=== PATIENT | male | born 1960 | race African-American/Black ===

== ENCOUNTER → 2016-08-06 | Outpatient (CLI) | payer BC ==
--- NOTE | 2016-08-06 16:49 | US ---
EXAMINATION TYPE: US kidneys/renal and bladder DATE OF EXAM: 08/06/2016 4:39 PM COMPARISON: Renal ultrasound March 19, 2013. CT abdomen and pelvis January 25, 2010. CLINICAL HISTORY: US. Renal CA on right. Right nephrectomy 2002 EXAM MEASUREMENTS: Right Kidney: surgically absent Left Kidney: 12.5 x 7.0 x 5.4cm ANATOMY: TECHNOLOGIST IMPRESSION: Right Kidney: Surgically absent Left Kidney: Appeared wnl, no evidence of mass or hydro Bladder: wnl Bilateral Jets seen: Left jet visualized There is no evidence for hydronephrosis at this point in time. No masses are identified. The urina ry bladder is anechoic. Left ureteral jet is seen. IMPRESSION: No evidence of recurrent mass at level of right renal fossa. No hydronephrosis is seen in remnant lef t kidney. Normal Values: Renal Length = 9 - 12cm Bladder Wall: < 0.3cm
== END | disposition home or self-care (01) ==
LOC: RADUSWWP 16:26
PROVIDERS: ATTEND Urology
DX: C64.1 Malignant neoplasm of right kidney, except renal pelvis (principal)
CPT/HCPCS: 76770

== ENCOUNTER → 2016-12-31 | Outpatient (CLI) | payer BC | LOC: LABWHC1 14:52 | PROVIDERS: ATTEND Urology | DX: C61 Malignant neoplasm of prostate (principal) | CPT/HCPCS: 36415; 84153 ==

== ENCOUNTER → 2017-06-13 | Outpatient (CLI) | payer BC | END | disposition home or self-care (01) | LOC: LABWHC1 16:40 | PROVIDERS: ATTEND Urology | DX: R97.21 Rising PSA following treatment for malignant neoplasm of prostate (principal) | CPT/HCPCS: 36415; 84153 ==

== ENCOUNTER → 2017-10-04 | Outpatient (CLI) | payer BC | END | disposition home or self-care (01) | LOC: LABWHC1 17:08 | PROVIDERS: ATTEND Urology | DX: R97.20 Elevated prostate specific antigen [PSA] (principal) | CPT/HCPCS: 36415; 84153 ==

== ENCOUNTER → 2017-12-04 | Outpatient (CLI) | payer BC | END | disposition home or self-care (01) | LOC: LABWHC1 10:47 | PROVIDERS: ATTEND Urology | DX: C61 Malignant neoplasm of prostate (principal) | CPT/HCPCS: 36415; 84153 ==

== ENCOUNTER → 2018-03-07 | Outpatient (CLI) | payer BC | END | disposition home or self-care (01) | LOC: LABWHC1 15:55 | PROVIDERS: ATTEND Urology | DX: C61 Malignant neoplasm of prostate (principal) | CPT/HCPCS: 36415; 84153 ==

== ENCOUNTER → 2018-06-05 | Outpatient (CLI) | payer BC ==
[2018-06-05 13:59] LABS: Basophils % (A) 1 %; Eosinophils # (A) 0.1 k/uL (0-0.7); Eosinophils % (A) 2 %; HCT 43.5 % (39.0-53.0); HGB 14.6 gm/dL (13.0-17.5); Lymphocytes # (A) 1.2 k/uL (1.0-4.8); Lymphocytes % (A) 30 %; MCH 29.1 pg (25.0-35.0); MCHC 33.5 g/dL (31.0-37.0); MCV 86.8 fL (80.0-100.0); Mean Platelet Volume 7.8; Monocytes # (A) 0.3 k/uL (0-1.0); Monocytes % (A) 8 %; Neutrophils # (A) 2.3 k/uL (1.3-7.7); Neutrophils % (A) 58 %; Platelet Count 187 k/uL (150-450); RBC 5.01 m/uL (4.30-5.90); RDW 12.7 % (11.5-15.5)
[2018-06-05 19:28] LABS: ALT 30 U/L (10-49); AST 31 U/L (14-35); Albumin/Globulin Ratio 2.39 (1.20-2.10); Alkaline Phosphatase 72 U/L (41-126); Calcium 9.5 mg/dL (8.7-10.3); Carbon Dioxide 27.7 mmol/L (21.6-31.8); Chloride 105 mmol/L (96-109); Cholesterol 163 mg/dL (0-200); Globulin 1.8 g/dL (2.1-3.7); Glucose 135 mg/dL (70-110); Potassium 4.1 mmol/L (3.5-5.5); Sodium 141 mmol/L (135-145); Total Bilirubin 0.5 mg/dL (0.2-1.2); Total Protein 6.1 g/dL (6.2-8.2); Triglycerides <50.0 mg/dL (0.0-149.0); VLDL Calculation 9.98 mg/dL (5.00-40.00)
== END | disposition home or self-care (01) ==
LOC: LABWHC1 12:19
PROVIDERS: ATTEND Family Medicine
DX: E10.65 Type 1 diabetes mellitus with hyperglycemia (principal)
CPT/HCPCS: 36415; 80053; 80061; 84443; 85025

== ENCOUNTER → 2018-11-13 | Outpatient (CLI) | payer BC | END | disposition home or self-care (01) | LOC: LABWHC1 13:40 | PROVIDERS: ATTEND Urology | DX: R97.20 Elevated prostate specific antigen [PSA] (principal) | CPT/HCPCS: 36415; 84153 ==

== ENCOUNTER → 2019-07-01 | Outpatient (CLI) | payer BC ==
[2019-07-01 20:01] LABS: ALT 32 U/L (10-49); AST 32 U/L (14-35); Cholesterol 146 mg/dL (0-200); Triglycerides <50.0 mg/dL (0.0-149.0)
== END | disposition home or self-care (01) ==
LOC: LABT 13:43
PROVIDERS: ATTEND Internal Medicine Interventional Cardiology
DX: E78.2 Mixed hyperlipidemia (principal)
CPT/HCPCS: 36415; 80061; 84450; 84460

== ENCOUNTER 2019-12-21 05:54 | Observation (INO) | payer BC, OTHER ==
[2019-12-21 06:15] LABS: Glucose,Whole Blood 164 mg/dL (75-99)
[2019-12-21] MEDS ORDERED: SODIUM CHLORIDE 0.9% 500 ML 500 ML IV STA (06:19)
[2019-12-21] MEDS ORDERED: hydrALAZINE HCL 20 MG/ML 1 ML VIAL IVP STA (06:21)
[2019-12-21 06:31] LABS: Basophils % (A) 1 %; Eosinophils # (A) 0.2 k/uL (0-0.7); Eosinophils % (A) 4 %; HCT 49.7 % (39.0-53.0); HGB 16.3 gm/dL (13.0-17.5); Lymphocytes # (A) 1.5 k/uL (1.0-4.8); Lymphocytes % (A) 35 %; MCH 29.4 pg (25.0-35.0); MCHC 32.8 g/dL (31.0-37.0); MCV 89.8 fL (80.0-100.0); Mean Platelet Volume 8.3; Monocytes # (A) 0.5 k/uL (0-1.0); Monocytes % (A) 12 %; Neutrophils # (A) 1.9 k/uL (1.3-7.7); Neutrophils % (A) 46 %; Platelet Count 165 k/uL (150-450); RBC 5.53 m/uL (4.30-5.90); RDW 12.8 % (11.5-15.5); WBC 4.2 k/uL (3.8-10.6)
[2019-12-21 06:38] LABS: Partial Thromboplastin Time 22.9 sec (22.0-30.0); Prothrombin Time 10.3 sec (9.0-12.0)
[2019-12-21 06:39] LABS: Albumin 4.6 g/dL (3.5-5.0); Calcium 9.8 mg/dL (8.4-10.2); Potassium 4.4 mmol/L (3.5-5.1); Total Bilirubin 0.7 mg/dL (0.2-1.3); Total Protein 7.3 g/dL (6.3-8.2)
--- NOTE | 2019-12-21 06:44 | CT ---
EXAMINATION TYPE: CT brain wo con DATE OF EXAM: 12/21/2019 COMPARISON: None HISTORY: RT FACIAL DROOP CT DLP: 1099.4 mGycm Automated exposure control for dose reduction was used. Ventricles have normal size. There is no mass effect nor midline shift. There is no sign of intracran ial hemorrhage. Calvarium is intact. Temporal bones appear normal. IMPRESSION: Negative unenhanced head CT scan.
--- NOTE | 2019-12-21 06:45 | XR ---
EXAMINATION TYPE: XR chest 2V DATE OF EXAM: 12/21/2019 COMPARISON: 03/14/2015 HISTORY: Altered mental status TECHNIQUE: FINDINGS: Heart and mediastinum are normal. Lungs are clear. Diaphragm is normal. Bony thorax is inta ct. There are chest leads. IMPRESSION: Normal chest. No change.
--- NOTE | 2019-12-21 06:48 | ED ---
Neuro HPI - General Chief Complaint: Neuro Symptoms/Deficit Stated Complaint: Neuro symptoms Time Seen by Provider: 12/21/19 06:07 Source: patient, RN notes reviewed Mode of arrival: ambulatory Limitations: no limitations - History of Present Illness Is the patient presenting with stroke symptoms?: Yes Initial Comments: 59-year-old male presents emergency Department chief complaint of right-sided facial droop, difficulty swallowing, etc. facial numbness. Patient states his symptoms started approximately 4 days ago when he noticed that he cannot close his eye completely on the right. He states it is getting soap in his eye. 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 Patient states that he has no symptoms of his extremities including upper or lower he denies any weakness no paresthesias. Denies chest pain or shortness of breath. Patient has a known hypertensive, diabetic. Patient does take also Lipitor. Patient states he took his blood pressure medication around 2 AM this morning. He states that he normally takes it. Late at night. Patient denies any fevers chills no URI symptoms. Denies blurred vision no dizziness. No current headache. - Related Data Allergies/Adverse Reactions: Allergies Allergy/AdvReac Type Severity Reaction Status Date / Time clindamycin Allergy Rash/Hives Verified 12/21/19 06:03 Penicillins Allergy Rash/Hives Verified 12/21/19 06:03 Review of Systems ROS Statement: Those systems with pertinent positive or pertinent negative responses have been documented in the HPI. ROS Other: All systems not noted in ROS Statement are negative. General Exam Limitations: no limitations General appearance: alert, in no apparent distress Head exam: Present: atraumatic, normocephalic, normal inspection Eye exam: Present: normal appearance, PERRL, EOMI. Absent: scleral icterus, conjunctival injection, periorbital swelling ENT exam: Present: normal exam, normal oropharynx, mucous membranes moist, TM's normal bilaterally Neck exam: Present: normal inspection, full ROM. Absent: tenderness, meningismus, lymphadenopathy Respiratory exam: Present: normal lung sounds bilaterally. Absent: respiratory distress, wheezes, rales, rhonchi, stridor Cardiovascular Exam: Present: regular rate, normal rhythm, normal heart sounds. Absent: systolic murmur, diastolic murmur, rubs, gallop, clicks Extremities exam: Present: normal inspection, full ROM, normal capillary refill, other (Upper and lower extremity strength equal bilaterally, neurovascular intact.). Absent: tenderness, pedal edema, joint swelling, calf tenderness Neurological exam: Present: alert, oriented X3, CN II-XII intact, reflexes normal, other (There is mild right-sided facial drooping noted, there is sparing of the right side of the forehead). Absent: motor sensory deficit Expanded Patient oriented to: Present: person, place, time Speech: Present: fluid speech Cranial nerves: EOM's Intact: Normal, Gag Reflex: Normal, Tongue Deviation: Normal, Nystagmus: Normal, Facial Palsy with Forehead Movement: Abnormal Right Eye Response: (4) open spontaneously Motor Response: (6) obeys commands Verbal Response: (5) oriented Skin exam: Present: warm, dry, intact, normal color. Absent: rash Stroke MDM - Lab Data Result diagrams: 12/21/19 06:12 12/21/19 06:12 Lab Results 12/21/19 12/21/19 12/21/19 Range/Units 06:12 06:12 06:12 WBC 4.2 (3.8-10.6) k/uL RBC 5.53 (4.30-5.90) m/uL Hgb 16.3 (13.0-17.5) gm/dL Hct 49.7 (39.0-53.0) % MCV 89.8 (80.0-100.0) fL MCH 29.4 (25.0-35.0) pg MCHC 32.8 (31.0-37.0) g/dL RDW 12.8 (11.5-15.5) % Plt Count 165 (150-450) k/uL Neutrophils % 46 % Lymphocytes % 35 % Monocytes % 12 % Eosinophils % 4 % Basophils % 1 % Neutrophils # 1.9 (1.3-7.7) k/uL Lymphocytes # 1.5 (1.0-4.8) k/uL Monocytes # 0.5 (0-1.0) k/uL Eosinophils # 0.2 (0-0.7) k/uL Basophils # 0.0 (0-0.2) k/uL PT 10.3 (9.0-12.0) sec INR 1.0 (<1.2) APTT 22.9 (22.0-30.0) sec Sodium 139 (137-145) mmol/L Potassium 4.4 (3.5-5.1) mmol/L Chloride 103 (98-107) mmol/L Carbon Dioxide 26 (22-30) mmol/L Anion Gap 10 mmol/L BUN 24 H (9-20) mg/dL Creatinine 1.79 H (0.66-1.25) mg/dL Est GFR (CKD-EPI)AfAm 47 (>60 ml/min/1.73 sqM) Est GFR (CKD-EPI)NonAf 41 (>60 ml/min/1.73 sqM) Glucose 157 H (74-99) mg/dL POC Glucose (mg/dL) (75-99) mg/dL POC Glu Manager Bar ID Calcium 9.8 (8.4-10.2) mg/dL Total Bilirubin 0.7 (0.2-1.3) mg/dL AST 47 (17-59) U/L ALT 28 (4-49) U/L Alkaline Phosphatase 72 (38-126) U/L Troponin I (0.000-0.034) ng/mL Total Protein 7.3 (6.3-8.2) g/dL Albumin 4.6 (3.5-5.0) g/dL 12/21/19 12/21/19 Range/Units 06:12 06:13 WBC (3.8-10.6) k/uL RBC (4.30-5.90) m/uL Hgb (13.0-17.5) gm/dL Hct (39.0-53.0) % MCV (80.0-100.0) fL MCH (25.0-35.0) pg MCHC (31.0-37.0) g/dL RDW (11.5-15.5) % Plt Count (150-450) k/uL Neutrophils % % Lymphocytes % % Monocytes % % Eosinophils % % Basophils % % Neutrophils # (1.3-7.7) k/uL Lymphocytes # (1.0-4.8) k/uL Monocytes # (0-1.0) k/uL Eosinophils # (0-0.7) k/uL Basophils # (0-0.2) k/uL PT (9.0-12.0) sec INR (<1.2) APTT (22.0-30.0) sec Sodium (137-145) mmol/L Potassium (3.5-5.1) mmol/L Chloride (98-107) mmol/L Carbon Dioxide (22-30) mmol/L Anion Gap mmol/L BUN (9-20) mg/dL Creatinine (0.66-1.25) mg/dL Est GFR (CKD-EPI)AfAm (>60 ml/min/1.73 sqM) Est GFR (CKD-EPI)NonAf (>60 ml/min/1.73 sqM) Glucose (74-99) mg/dL POC Glucose (mg/dL) 164 H (75-99) mg/dL POC Glu Manager Bar Luh Zhong Calcium (8.4-10.2) mg/dL Total Bilirubin (0.2-1.3) mg/dL AST (17-59) U/L ALT (4-49) U/L Alkaline Phosphatase (38-126) U/L Troponin I 0.014 (0.000-0.034) ng/mL Total Protein (6.3-8.2) g/dL Albumin (3.5-5.0) g/dL - NIH Stroke Scale 1a. Level of Consciousness: (0) alert 1b. LOC Questions: (0) answers correctly 1c. LOC Commands: (0) performs tasks correctly 2. Best Gaze: (0) normal 3. Visual: (0) no visual loss 4. Facial Palsy: (1) minor paralysis 5a. Motor Arm Left: (0) no drift 5b. Motor Arm Right: (0) no drift 6a. Motor Leg Left: (0) no drift 6b. Motor Leg Right: (0) no drift 7. Limb Ataxia: (0) absent 8. Sensory: (0) normal 9. Best Language: (0) no aphasia 10. Dysarthria: (0) normal 11. Extinction/Inattention: (0) no abnormality - Thrombolytic Inclusion/Exclusion Thrombolytic Exclusion Criteria: Symptom Onset > 4.5 Hours - Medical Decision Making 59-year-old male presents emergency from for right-sided facial droop, difficulty swallowing. Patient has subacute stroke on it CT does not show an acute findings, labs to reveal mild CAD. Patient will be admitted for neurology evaluation, MRI. 12/21/19 06:47 EKG performed at 6:44 normal sinus rhythm rate of 65 IN interval 152 QRS 78 QT/QTC 392/407 Past Medical History Past Medical History: Diabetes Mellitus, GERD/Reflux, Hypertension Additional Past Medical History / Comment(s): type 1 diabetic, GERD History of Any Multi-Drug Resistant Organisms: None Reported Past Surgical History: Back Surgery, Prostate Surgery Additional Past Surgical History / Comment(s): l4 l5 fusion 2010, R nephrectomy 2002, prostatectomy 2014 Past Psychological History: No Psychological Hx Reported Smoking Status: Never smoker Past Alcohol Use History: Occasional Past Drug Use History: None Reported Course Vital Signs 12/21/19 12/21/19 05:56 07:09 Temperature 98.3 F Pulse Rate 85 59 L Respiratory 18 18 Rate Blood Pressure 209/96 143/80 O2 Sat by Pulse 100 98 Oximetry Disposition Clinical Impression: Cerebrovascular accident (CVA) Disposition: ADMITTED IP TO THIS HOSP Condition: Fair Referrals: Jesus Manuel Bañuelos MD [Primary Care Provider] - 1-2 days
[2019-12-21] MEDS ORDERED: ASPIRIN 325 MG TAB PO STA (07:27)
--- NOTE | 2019-12-21 08:48 | US ---
EXAMINATION TYPE: US carotid duplex BILAT DATE OF EXAM: 12/21/2019 COMPARISON: NONE CLINICAL HISTORY: Stenosis. Right side facial drooping EXAM MEASUREMENTS: RIGHT: Peak Systolic Velocity (PSV) cm/sec ----- Right CCA: 93.9 ----- Right ICA: 91.0 ----- Right ECA: 89.5 ICA/CCA ratio: 1.0 RIGHT: End Diastole cm/sec ----- Right CCA: 15.4 ----- Right ICA: 12.5 ----- Right ECA: 8.1 LEFT: Peak Systolic Velocity (PSV) cm/sec ----- Left CCA: 88.1 ----- Left ICA: 54.9 ----- Left ECA: 61.4 ICA/CCA ratio: 0.6 LEFT: End Diastole cm/sec ----- Left CCA: 11.4 ----- Left ICA: 18.2 ----- Left ECA: 13.1 VERTEBRALS (direction of flow): Right Vertebral: Antegrade Left Vertebral: Antegrade Rhythm: Normal Grayscale, color Doppler, spectral Doppler imaging performed of the carotid arteries. Waveform analys is does not show significant stenosis of the internal carotid arteries. Minimal plaque visualized, no elevated velocities, no significant stenosis IMPRESSION: No hemodynamic significant stenosis of the proximal internal carotid arteries by Doppler criteria, an indirect measurement of carotid stenosis
[2019-12-21] MEDS ORDERED: ACETAMINOPHEN TAB 325 MG TAB PO PRN (11:21)
[2019-12-21] MEDS ORDERED: ONDANSETRON 4 MG/2 ML VIAL IVP PRN (11:21)
[2019-12-21] MEDS ORDERED: MELATONIN 3 MG TABLET PO PRN (11:21)
[2019-12-21] MEDS ORDERED: SODIUM CHLORIDE 0.9% 1,000 ML IV SCH (11:30)
--- NOTE | 2019-12-21 11:56 | P.HPIM ---
History of Present Illness H&P Date: 12/21/19 Chief Complaint: facial droop Patient is a 59-year-old -[place] male with a past medical history of type 1 diabetes mellitus discovered at age 34, hypertension, and GERD who presented to the emergency department with complaints of right-sided facial weakness, difficulty with chewing, some difficulty swallowing. In the ER he underwent an extensive evaluation. CT head showed no acute process. Initial blood pressure was significantly elevated with systolic greater than 200. Initial laboratory analysis was unremarkable. Patient seen and examined at bedside. He reports 4 days of symptoms including right eye swelling in the morning, facial asymmetry, and difficulty with brushing teeth. He reports some progression of his symptoms over the last 4 days. He has not sought medical attention as he thought it was Dennison's Palsy. However he now notes some difficulty swallowing and choking. He notes increasing muscle fatigue, numbness, and drooling with eating. This resolves with rest and then returns. He also reports some difficulty closing his right eye. No recent illness. No recent changes in medications. Hx of bells palsy, no hx of stroke in family Last A1C 7.3 Works as a assistant professor of nursing. Review of Systems Pertinent positives and negatives as discussed in HPI, a complete review of systems was performed and all other systems are negative. Past Medical History Past Medical History: Diabetes Mellitus, GERD/Reflux, Hypertension Additional Past Medical History / Comment(s): type 1 diabetic, GERD History of Any Multi-Drug Resistant Organisms: None Reported Past Surgical History: Appendectomy, Back Surgery, Prostate Surgery Additional Past Surgical History / Comment(s): l4 l5 fusion 2010, R nephrectomy 2002, prostatectomy 2014 Past Psychological History: No Psychological Hx Reported Smoking Status: Never smoker Past Alcohol Use History: Occasional Past Drug Use History: None Reported Additional History: works as a assistant professor of nursing - Past Family History Father Family Medical History: Diabetes Mellitus, Hypertension Mother Family Medical History: Diabetes Mellitus Medications and Allergies Home Medications Medication Instructions Recorded Confirmed Type Atorvastatin [Lipitor] 10 mg PO HS 12/21/19 12/21/19 History INSULIN ASPART (NovoLOG) [NovoLOG 15 unit SQ AC-TID 12/21/19 12/21/19 History (formulary)] Insulin Glargine,Hum.rec.anlog 38 units SQ DAILY 12/21/19 12/21/19 History [Lakisha Camara] Allergies Allergy/AdvReac Type Severity Reaction Status Date / Time clindamycin Allergy Rash/Hives Verified 12/21/19 06:03 Penicillins Allergy Rash/Hives Verified 12/21/19 06:03 Physical Exam Osteopathic Statement: *. No significant issues noted on an osteopathic structural exam other than those noted in the History and Physical/Consult. Vitals: Vital Signs Temp Pulse Pulse Resp BP BP Pulse Ox 12/21/19 09:13 97.3 F L 99 16 162/83 99 12/21/19 08:30 77 16 157/85 96 12/21/19 07:09 59 L 18 143/80 98 12/21/19 05:56 98.3 F 85 18 209/96 100 Intake and Output 12/20/19 12/21/19 12/21/19 22:59 06:59 14:59 Other: Weight 88.813 kg 88.813 kg General: non toxic, no distress, appears at stated age, normal weight Derm: no unusual rashes/lesions no unusual ecchymoses, warm, dry Head: atraumatic, normocephalic, symmetric Eyes: EOMI, slight lid lag on the right , anicteric sclera, pupils equal round reactive to light ENT: Nose and ears atraumatic, no thrush, no pharyngeal erythema Neck: No thyromegaly, no cervical lymphadenopathy, trachea midline, supple Mouth: no lip lesion, mucus membranes moist Cardiovascular: S1S2 reg, no murmur, positive posterior tibial pulse bilateral, no edema, capillary refill less than 2 seconds Lungs: CTA bilateral, no rhonchi, no rales , no accessory muscle use Abdominal: soft, nontender to palpation, no guarding, no appreciable organomegaly, normal bowel sounds Ext: no gross muscle atrophy, muscle strength 5 out of 5 in all 4 extremities, no contractures, Neuro: tongue deviation to the left, uvula midline, Flattening of nasolabial fold on the right, weakness of right eye lid, weakness of eyebrow raise on the right, light touch intact all 4 extremities, finger to nose within normal limits, Psych: Alert, oriented, appropriate affect Results CBC & Chem 7: 12/21/19 06:12 12/21/19 06:12 Labs: Abnormal Lab Results - Last 24 Hours (Table) 12/21/19 12/21/19 Range/Units 06:12 06:13 BUN 24 H (9-20) mg/dL Creatinine 1.79 H (0.66-1.25) mg/dL Glucose 157 H (74-99) mg/dL POC Glucose (mg/dL) 164 H (75-99) mg/dL Chest x-ray: report reviewed CT Scan - head: report reviewed Thrombosis Risk Factor Assmnt - DVT/VTE Prophylaxis DVT/VTE Prophylaxis: Mechanical Prophylaxis ordered Assessment and Plan Assessment: Facial asymmetry -Dennison's Palsy vs Stroke - Carotid doppler negative - Head CT negative - ASA, statin - Neurology Consult - Prednisone - speech consult HTN urgency on arrival - Resume home medications - Patient is 4 days from neuro onset and likely would not benefit from permissive HTN at this time. - Follow BP DM 1 - resume long acting, Novolog and SSI - Follow BS - Check A1C GERD - Resume H2 maximiliano CKD III -Last available creatinine is 2018 is 1.4. current Creatinine is 1.79. -Patient does not have any signs or symptoms of dehydration suspect that this is currently baseline renal function in light of his diabetes. - Repeat Cr in AM The patient is placed in observation with an anticipated less than 2 midnight stay for evaluation of Facial asymmetry . DVT prophylaxis: Lovenox Discussed with: Patient and nursing Anticipated discharge date: in AM Anticipated discharge place: home A total of 35 minutes was spent on the care of this complex patient more than 50% of the time was spent in counseling and care coordination.
[2019-12-21 12:10] LABS: Glucose,Whole Blood 97 mg/dL (75-99)
[2019-12-21] MEDS: predniSONE 20 MG TAB PO SCH (12:15)
[2019-12-21] MEDS: INSULIN ASPART (NovoLOG) 100 UNIT/ML VIAL SQ SCH ×3 (13:12→22:09)
[2019-12-21 17:20] LABS: Glucose,Whole Blood 72 mg/dL (75-99)
[2019-12-21 20:20] LABS: Glucose,Whole Blood 131 mg/dL (75-99)
[2019-12-21] MEDS ORDERED: BACLOFEN 10 MG TAB PO PRN (22:13)
[2019-12-21] MEDS: SODIUM CHLORIDE 0.9% 1,000 ML IV SCH (22:16)
[2019-12-21] MEDS: ATORVASTATIN 10 MG TAB PO SCH (22:16)
[2019-12-22] MEDS: hydrALAZINE HCL 25 MG TAB PO SCH ×4 (00:49→21:56)
[2019-12-22] MEDS: LATANOPROST 0.005% OPHTH DROPS 2.5 ML BTL BOTH EYES SCH ×2 (00:49→21:56)
--- NOTE | 2019-12-22 03:39 | CONS ---
CONSULTATION DATE OF SERVICE: 12/21/2019 REASON FOR CONSULT: Acute onset of right facial weakness, difficulty swallowing and chewing. This is a 59-year-old male with a history of insulin-dependent diabetes (age of onset 34) who has hypertension, reflux. The patient was in his usual state of health up until approximately 5 days prior to admission, he started noticing difficulty with swallowing. He reports that in addition to this, he began to see some swelling of the right eye and difficulty closing it. This progressed over the next several days involving difficulty brushing his teeth, increased muscle fatigue in the facial muscles, numbness and drooling while eating. Initially, he felt this was allergies, but on the night of admission in the middle of the night between 10 and 2:00 am he realized that he was having more difficulty swallowing and was concerned that he may have aspirated. Prior to him coming to the emergency room, he reports that several days prior he noted that his face was deviating to the left. When he would pucker his lips particularly he would see that the right side of his face could not pucker. The patient has never had any episode like this prior. He reports he was given a dose of steroids today and was able to eat both lunch and dinner without any difficulty. He reports that he did feel that there was a strengthening of his muscles after receiving the steroids. Review of the chart indicates he has had a brain CT scan, noncontrast, which is negative. Carotid ultrasound shows no evidence of stenosis. Pertinent labs include hemoglobin A1c 7.3. On admission, his blood pressure was elevated with systolic blood pressure over 200. PAST MEDICAL HISTORY: Significant for insulin-dependent diabetes, the loss of one kidney, hypertension, gastroesophageal reflux. FAMILY HISTORY: Noncontributory. SOCIAL HISTORY: The patient works full-time and he is a clinical nursing instructor. GENERAL PHYSICAL EXAMINATION: APPEARANCE: No acute distress. HEENT: Clear sclerae. Clear oropharynx. NECK: Supple. CHEST: Clear to auscultation throughout. CARDIAC: Regular rate and rhythm. No murmurs noted. No carotid bruits present. PULSES: Radial and pedal pulses are equal and symmetric. EXTREMITIES: No edema noted in the hands or feet or clubbing of the digits. NEUROLOGIC EXAM: MENTAL STATUS: Awake, alert, oriented x3. Speech fluent. Affect appropriate. PUPILS: 2 mm equally reactive to light and accommodation. CRANIAL NERVE EXAMINATION: Extraocular movements are full. No nystagmus noted on vertical or horizontal gaze. There is mild lid retraction on the right. V1 through V3 sensory is intact. There is mild facial weakness noted without sparing of the forehead on the right. Gag is intact and strong. Palate elevates symmetrically. Cranial nerve 8 is intact by clinical observation. Shoulder shrug is symmetric. Tongue is midline without fasciculations or deviation. Testing of the tongue shows some mild weakness of the tongue when protruding to the right. MOTOR EXAMINATION: Normal muscle bulk and tone throughout. Strength is 5/5 throughout. Pronator drift is negative. No fasciculations or tremor noted. Coordination testing is intact to [id number] testing with eyes open eyes closed. [id number] maneuvers intact. Rapid sequential finger tapping intact. DEEP TENDON REFLEXES: +2 over the biceps, triceps, brachioradialis. Patellar reflexes are +2 with crossed adduction on the left. Ankle jerks are trace bilaterally. Plantar responses are flexor bilaterally. No ankle clonus is elicited. SENSORY EXAMINATION: Grossly intact to light touch throughout. Gait examination deferred. ASSESSMENT/RECOMMENDATION: 59-year-old gentleman with five days prior to admission evolving symptoms of developing right sided facial weakness, difficulty with swallowing and chewing particularly on that side and right lid retraction. On the neurologic exam today, there is no sparing of the forehead to suggest this is an upper motor neuron lesion. Most likely etiology for this is a Dennison's palsy due to total facial weakness noted on the right. The patient also did have a robust response clinically to steroids today where he felt his symptoms began to resolve. He was able to eat lunch and dinner without any difficulty. RECOMMENDATIONS: 1. Continue with 60 mg of prednisone p.o. and continue with this dose on a tapering schedule. 2. Provide GI prophylaxis. 3. Apply patch to eye at night to prevent corneal abrasions which is common with Dennison's palsy. 4. MRI of the brain and MRA of the head and neck without contrast to rule out still possible any intracranial pathology. 5. Formal swallow evaluation by speech therapy in a.m. 6. Physical therapy to work with patient on improving strength of masseter muscles. This can be helpful in Dennison's palsy. 7. Medicine team to closely monitor glucose with sliding scale while on high- dose steroids. 8. Would not recommend at this time due to no proven benefit using acyclovir, especially since he has had this five days prior to admission. Thank you for this consultation. This patient's prognosis remains very favorable. Further recommendations will be made as this case evolves. Neurology will be following the patient closely during this admission. ROSALINDA / JULIETTE: [id number] / MTDD
[2019-12-22 06:20] LABS: Glucose,Whole Blood 122 mg/dL (75-99)
[2019-12-22] MEDS: INSULIN ASPART (NovoLOG) 100 UNIT/ML VIAL SQ SCH ×6 (06:23→20:21)
[2019-12-22] MEDS: SODIUM CHLORIDE 0.9% 1,000 ML IV SCH ×2 (06:43→20:21)
[2019-12-22 07:16] LABS: Glucose,Whole Blood 133 mg/dL (75-99)
[2019-12-22 07:49] LABS: Calcium 8.8 mg/dL (8.4-10.2); Potassium 4.5 mmol/L (3.5-5.1)
[2019-12-22] MEDS ORDERED: INSULIN DETEMIR (LEVEMIR) 100 UNIT/ML SYR SQ SCH (09:00)
[2019-12-22] MEDS: LISINOPRIL 20 MG TAB PO SCH (09:14)
[2019-12-22] MEDS: FAMOTIDINE 20 MG TAB PO SCH (09:14)
[2019-12-22] MEDS: predniSONE 20 MG TAB PO SCH (09:14)
[2019-12-22] MEDS: ASPIRIN 325 MG TAB PO SCH (09:14)
[2019-12-22] MEDS: DOCUSATE 100 MG CAP PO SCH (09:15)
[2019-12-22] MEDS: ENOXAPARIN 40 MG/0.4 ML SYRINGE SQ SCH (09:15)
[2019-12-22] MEDS ORDERED: DIAZEPAM 5 MG/ML 2 ML INJ IVP ONE ×2 (11:00→11:30)
[2019-12-22 11:16] LABS: Glucose,Whole Blood 147 mg/dL (75-99)
[2019-12-22 14:01] LABS: Hemoglobin A1C 8.1 % (4.0-6.0)
[2019-12-22 16:25] LABS: Glucose,Whole Blood 121 mg/dL (75-99)
--- NOTE | 2019-12-22 19:44 | P.PN ---
Subjective Progress Note Date: 12/22/19 (delayed charting seen at 11 am ) Principal diagnosis: facial asymmetry Patient is a 59-year-old -[place] male with a past medical history of type 1 diabetes mellitus discovered at age 34, hypertension, and GERD who presented to the emergency department with complaints of right-sided facial weakness, difficulty with chewing, some difficulty swallowing. In the ER he un derwent an extensive evaluation. CT head showed no acute process. Initial blood pressure was significantly elevated with systolic greater than 200 and he was given a dose of hydralazine. Initial laboratory analysis was unremarkable. He was felt to likely have Dennison's palsy however he was admitted to rule out possible brainstem infarct. He received a dose of aspirin. He is felt likely have Dennison's palsy and was started on oral steroids. Neurology was consulted who agreed with probable Dennison's however felt that brainstem CVA needed to be ruled out. MRI and MRA ordered. Speech was consulted and he was noted to have normal transit time and normal oropharyngeal swallow. Patient seen and examined at bedside. He continues to have fatigue with eating and feeling as though his muscles are spasming. He denies any weakness or numbness in his legs or arms. No nausea or vomiting. No chest pain. He wants to have an MRI and MRA to ensure there is nothing besides Dennison's palsy going on. Objective - Vital Signs Vital signs: Vital Signs Temp 97.6 F 12/22/19 15:34 Pulse 58 L 12/22/19 16:00 Resp 18 12/22/19 16:00 BP 132/81 12/22/19 15:34 Pulse Ox 99 12/22/19 15:34 Intake & Output 12/22/19 12/22/19 12/23/19 06:59 18:59 06:59 Intake Total 180 660 Balance 180 660 Weight 88.2 kg Intake: Oral 180 660 Other: Voiding Method Toilet Toilet # Voids 1 - Exam General: non toxic, no distress, appears at stated age Derm: warm, dry Head: atraumatic, normocephalic, asymmetric Eyes: EOMI, no lid lag, anicteric sclera Mouth: no lip lesion, mucus membranes moist Cardiovascular: S1S2 reg, no murmur, positive posterior tibial pulse bilateral, Lungs: CTA bilateral, no rhonchi, no rales , no accessory muscle use Abdominal: soft, nontender to palpation, no guarding, no appreciable organomegaly Ext: no gross muscle atrophy, no edema, no contractures Neuro: Moving all 4 extremities independently, right-sided facial droop Psych: Alert, oriented, appropriate affect - Labs CBC & Chem 7: 12/21/19 06:12 12/22/19 06:25 Labs: Abnormal Lab Results - Last 24 Hours (Table) 12/21/19 12/22/19 12/22/19 Range/Units 20:18 06:18 06:25 Chloride (98-107) mmol/L Carbon Dioxide (22-30) mmol/L BUN (9-20) mg/dL Glucose (74-99) mg/dL POC Glucose (mg/dL) 131 H 122 H (75-99) mg/dL Hemoglobin A1c 8.1 H (4.0-6.0) % HDL Cholesterol (40-60) mg/dL 12/22/19 12/22/19 12/22/19 Range/Units 06:25 07:14 11:14 Chloride 108 H (98-107) mmol/L Carbon Dioxide 19 L (22-30) mmol/L BUN 21 H (9-20) mg/dL Glucose 122 H (74-99) mg/dL POC Glucose (mg/dL) 133 H 147 H (75-99) mg/dL Hemoglobin A1c (4.0-6.0) % HDL Cholesterol 69 H (40-60) mg/dL 12/22/19 Range/Units 16:23 Chloride (98-107) mmol/L Carbon Dioxide (22-30) mmol/L BUN (9-20) mg/dL Glucose (74-99) mg/dL POC Glucose (mg/dL) 121 H (75-99) mg/dL Hemoglobin A1c (4.0-6.0) % HDL Cholesterol (40-60) mg/dL Assessment and Plan Assessment: Facial asymmetry - Dennison's Palsy vs Stroke - Carotid doppler negative - Head CT negative - ASA, statin - Neurology recommendations appreciated: Await MRI and MRA, echocardiogram - Prednisone 60 mg started 12/21 plan is for 10 day course - speech consult HTN urgency on arrival, now resolved -Continue with lisinopril and hydralazine - Patient is 4 days from neuro onset and likely would not benefit from permissive HTN at this time. - Follow BP DM 1 - Long acting, Novolog and SSI - Follow BS - A1C 8.1 GERD - pepcid COLE on CKD III -Last available creatinine is 2018 is 1.4. - improved Plan was for discharge home after MRI/MRA patient was unable to have MRI today DVT prophylaxis: Lovenox Discussed with: Patient and nursing Anticipated discharge date: in AM Anticipated discharge place: home A total of 35 minutes was spent on the care of this complex patient more than 50% of the time was spent in counseling and care coordination.
[2019-12-22 20:47] LABS: Glucose,Whole Blood 81 mg/dL (75-99)
[2019-12-22] MEDS: ATORVASTATIN 10 MG TAB PO SCH (21:56)
[2019-12-23] MEDS ORDERED: INSULIN DETEMIR (LEVEMIR) 100 UNIT/ML SYR SQ SCH (07:00)
[2019-12-23 07:10] LABS: Glucose,Whole Blood 112 mg/dL (75-99)
[2019-12-23] MEDS: SODIUM CHLORIDE 0.9% 1,000 ML IV SCH (09:10)
[2019-12-23] MEDS: INSULIN ASPART (NovoLOG) 100 UNIT/ML VIAL SQ SCH ×4 (09:10→13:13)
--- NOTE | 2019-12-23 09:56 | MR ---
EXAMINATION TYPE: MR brain wo con DATE OF EXAM: 12/23/2019 COMPARISON: CT brain 2 days ago. HISTORY: Rt facial droop/acute stroke suspected on admission 2 days earlier. TECHNIQUE: Multiplanar, multisequence imaging of the brain and brainstem is performed without IV cont rast. FINDINGS: Diffusion weighted images demonstrate no evidence of a recent infarct or other diffusion abnormality. There is no extraaxial fluid collection or significant white matter signal abnormality. The ventricu lar system and cisternal spaces are normal in size and appearance. The brain volume is age appropria te. Midline structures demonstrate normal morphology. The craniocervical junction appears within normal limits. Normal vascular flow voids are present. The visualized sinuses are clear and the globes are i ntact. IMPRESSION: No MRI evidence for recent infarct. Fairly unremarkable study.
[2019-12-23 10:02] VITALS: PULSE 63; RESP 16; TEMP 97.7
[2019-12-23] MEDS: FAMOTIDINE 20 MG TAB PO SCH (10:03)
[2019-12-23] MEDS: ASPIRIN 325 MG TAB PO SCH (10:03)
[2019-12-23] MEDS: LISINOPRIL 20 MG TAB PO SCH (10:03)
[2019-12-23] MEDS: predniSONE 20 MG TAB PO SCH (10:03)
[2019-12-23] MEDS: hydrALAZINE HCL 25 MG TAB PO SCH ×2 (10:04→13:13)
[2019-12-23] MEDS: ENOXAPARIN 40 MG/0.4 ML SYRINGE SQ SCH (10:04)
[2019-12-23] MEDS: DOCUSATE 100 MG CAP PO SCH (10:04)
[2019-12-23 12:06] LABS: Glucose,Whole Blood 132 mg/dL (75-99)
--- NOTE | 2019-12-23 13:12 | MR ---
EXAMINATION TYPE: MR angio head/neck wo con DATE OF EXAM: 12/23/2019 COMPARISON: Carotid ultrasound 2 days ago HISTORY: Rt facial droop/CVA TECHNIQUE: MRA images of the neck performed without IV contrast. Time of flight images focusing on th e [place] were performed without contrast.. 2-D and 3-D postprocessing imaging is performed on the MRI scanner and reviewed. FINDINGS: Bovine type arch is present which is normal variant. Visualized portion of the common and i nternal carotid artery show no significant stenosis including a level of bilateral carotid bulbs. Pat ent bilateral external carotid arteries without significant stenosis. Codominant vertebrobasilar system. Vertebral arteries patent to basilar junction. Small caliber verte brobasilar system noted. Patent bilateral posterior communicating arteries filling posterior cerebral arteries which are larger caliber. No significant stenosis or aneurysmal change. Images of the anterior circulation show small caliber patent anterior communicating artery. No signif icant focal stenosis or aneurysmal change. IMPRESSION: 1. No significant stenosis in common or internal carotid arteries bilaterally. 2. No significant focal stenosis or aneurysmal change at level of [place]. Small caliber zuly tebrobasilar system, correlate for possible insufficiency with increased caliber posterior cerebral a rteries bilaterally due to patent posterior communicating arteries.
--- NOTE | 2019-12-23 14:45 | P.DS ---
Providers Date of admission: 12/21/19 07:48 Expected date of discharge: 12/23/19 Attending physician: Marianna Knight DO Consults: 12/21/19 07:27 Consult Physician Urgent Consulting Provider: Angelique Koenig Consult Reason/Comments: CVA Do you want consulting provider notified?: Yes Primary care physician: Jesus Manuel Bañuelos Hospital Course: Discharge Diagnosis: Facial asymmetry HTN urgency or arrival DM 2 insulin requiring GERD COLE on CKD 3 Hospital Course: Patient is a 59-year-old -[place] male with a past medical history of type 1 diabetes mellitus discovered at age 34, hypertension, and GERD who presented to the emergency department with complaints of right-sided facial weakness, difficulty with chewing, some difficulty swallowing. In the ER he underwent an extensive evaluation. CT head showed no acute process. Initial blood pressure was significantly elevated with systolic greater than 200 and he was given a dose of hydralazine. Initial laboratory analysis was unremarkable. He was felt to likely have Dennison's palsy however he was admitted to rule out possible brainstem infarct. He received a dose of aspirin. He was felt likely have Dennison's palsy and was started on oral steroids. Neurology was consulted who agreed with probable Dennison's however felt that brainstem CVA needed to be ruled out. MRI brain was unremarkable. His MRA showed small caliber vertebrobasilar system with patent posterior communicating arteries. Speech was consulted and he was noted to have normal transit time and normal oropharyngeal swallow. He will complete a prolong taper of prednisone for his Dennison's Palsy. He tolerated steroids well and his blood sugars remained normal. Patient seen and examined at bedside. Still with right sided facial droop. No new muscle weakness feeling good. Vital signs reviewed and stable. General: non toxic, no distress, appears at stated age Derm: warm, dry Head: atraumatic, normocephalic, symmetric Eyes: EOMI, no lid lag, anicteric sclera Mouth: no lip lesion, mucus membranes moist Cardiovascular: S1S2 reg, no murmur, positive posterior tibial pulse bilateral, Lungs: Decreased bs bilateral, no rhonchi, no rales , no accessory muscle use Abdominal: soft, nontender to palpation, no guarding, no appreciable organomegaly Ext: no gross muscle atrophy, no edema, no contractures Neuro: Right sided facial droop, all 4 extremities moving independently Psych: Alert, oriented, appropriate affect A total of 25 minutes of time were spent preparing this complex discharge summary . Patient Condition at Discharge: Fair Plan - Discharge Summary Discharge Rx Participant: No New Discharge Prescriptions: New predniSONE [Deltasone] 0 mg PO DIRECTED #21 tab Continue Atorvastatin [Lipitor] 10 mg PO HS Insulin Glargine,Hum.rec.anlog [Lakisha Camara] 38 - 40 units SQ DAILY INSULIN ASPART (NovoLOG) [NovoLOG (formulary)] 15 unit SQ AC-TID INSULIN ASPART (NovoLOG) [NovoLOG (formulary)] See Protocol SQ AC-TID PRN PRN Reason: JOSE BLOOD SUGAR Glucos Sul 2Kcl/MSM/Chond/C/Mn [Glucosamine Chondroitin Cap] 1 cap PO DAILY Ubidecarenone [Co Q-10] 100 mg PO DAILY Docusate [Colace] 100 mg PO DAILY Cholecalciferol [Vitamin D3 (25 Mcg = 1000 Iu)] 1,000 unit PO DAILY Aspirin EC [Ecotrin Low Dose] 81 mg PO HS Lisinopril 40 mg PO DAILY Latanoprost/Pf [Latanoprost 0.005% Eye Drop] 1 drop BOTH EYES HS Ibuprofen [Motrin] 600 mg PO TID PRN PRN Reason: Pain Empagliflozin [Jardiance] 10 mg PO DAILY hydrALAZINE HCL 25 mg PO TID@1000,1200,0200 Famotidine 40 mg PO DAILY Baclofen 10 mg PO TID PRN PRN Reason: BACK PAIN metFORMIN HCL ER [Glucophage Xr] 500 mg PO DAILY Hydrochlorothiazide Unknown St 1 tab PO DAILY Discharge Medication List Aspirin EC [Ecotrin Low Dose] 81 mg PO HS 12/21/19 [History] Atorvastatin [Lipitor] 10 mg PO HS 12/21/19 [History] Baclofen 10 mg PO TID PRN 12/21/19 [History] Cholecalciferol [Vitamin D3 (25 Mcg = 1000 Iu)] 1,000 unit PO DAILY 12/21/19 [History] Docusate [Colace] 100 mg PO DAILY 12/21/19 [History] Empagliflozin [Jardiance] 10 mg PO DAILY 12/21/19 [History] Famotidine 40 mg PO DAILY 12/21/19 [History] Glucos Sul 2Kcl/MSM/Chond/C/Mn [Glucosamine Chondroitin Cap] 1 cap PO DAILY 12/21/19 [History] Hydrochlorothiazide Unknown St 1 tab PO DAILY 12/21/19 [History] INSULIN ASPART (NovoLOG) [NovoLOG (formulary)] 15 unit SQ AC-TID 12/21/19 [History] INSULIN ASPART (NovoLOG) [NovoLOG (formulary)] See Protocol SQ AC-TID PRN 12/21/19 [History] Ibuprofen [Motrin] 600 mg PO TID PRN 12/21/19 [History] Insulin Glargine,Hum.rec.anlog [[place]jeo Solostar] 38 - 40 units SQ DAILY 12/21/19 [History] Latanoprost/Pf [Latanoprost 0.005% Eye Drop] 1 drop BOTH EYES HS 12/21/19 [History] Lisinopril 40 mg PO DAILY 12/21/19 [History] Ubidecarenone [Co Q-10] 100 mg PO DAILY 12/21/19 [History] hydrALAZINE HCL 25 mg PO TID@1000,1200,0200 12/21/19 [History] metFORMIN HCL ER [Glucophage Xr] 500 mg PO DAILY 12/21/19 [History] predniSONE [Deltasone] 0 mg PO DIRECTED #21 tab 12/23/19 [Rx] Follow up Appointment(s)/Referral(s): Jesus Manuel Bañuelos MD [Primary Care Provider] - 1-2 days Patient Instructions/Handouts: Dennison Palsy (DC) Activity/Diet/Wound Care/Special Instructions: Activity: as tolerated Diet: carb consistent Special Instructions: Speech Therapy Discharge Disposition: HOME SELF-CARE
[2019-12-23 14:56] VITALS: BP 124/74
--- NOTE | 2019-12-23 20:42 | ECHOF ---
Referral Reason:acute stroke MEASUREMENTS -------- HEIGHT: 175.3 cm WEIGHT: 87.1 kg BP: 124/76 IVSd: 1.4 cm (0.6 - 1.1) LVIDd: 4.2 cm (3.9 - 5.3) LVPWd: 1.3 cm (0.6 - 1.1) IVSs: 1.7 cm LVIDs: 2.8 cm LVPWs: 1.9 cm RVIDd: 3.6 cm (< 3.3) LAESV Index (A-L): 24.15 ml/m Ao Diam: 2.8 cm (2.0 - 3.7) AV Cusp: 2.2 cm (1.5 - 2.6) EPSS: 0.3 cm MV E Nate: 0.88 m/s MV DecT: 157 ms MV A Nate: 0.57 m/s MV E/A Ratio: 1.54 RAP: 5.00 mmHg RVSP: 28.93 mmHg MV EF SLOPE: 84.63 mm/s (70 - 150) MV EXCURSION: 21.56 mm (> 18.000) FINDINGS -------- Resting bradycardia (HR<60bpm). This was a technically good study. The left ventricular size is normal. There is mild concentric left ventricular hypertrophy. Overa ll left ventricular systolic function is normal with, an EF between 55 - 60 %. The diastolic fillin g pattern is normal for the age of the patient 10.53. The right ventricle is mildly enlarged. Normal LA size by volume 22+/-6 ml/m2. The right atrial size is normal. Interatrial and interventricular septum intact. The aortic valve is trileaflet and appears structurally normal. There is no evidence of aortic regu rgitation. There is no evidence of aortic stenosis. Mild mitral regurgitation is present. Mild tricuspid regurgitation present. There is no evidence of pulmonary hypertension. The right v entricular systolic pressure, as measured by Doppler, is 28.93mmHg. Trace/mild (physiologic) pulmonic regurgitation. The aortic root size is normal. The inferior vena cava is mildly dilated. There is no pericardial effusion. CONCLUSIONS -------- 1. Resting bradycardia (HR<60bpm). 2. This was a technically good study. 3. The left ventricular size is normal. 4. There is mild concentric left ventricular hypertrophy. 5. Overall left ventricular systolic function is normal with, an EF between 55 - 60 %. 6. The diastolic filling pattern is normal for the age of the patient 10.53 7. The right ventricle is mildly enlarged. 8. Normal LA size by volume 22+/-6 ml/m2. 9. The right atrial size is normal. 10. Interatrial and interventricular septum intact. 11. The aortic valve is trileaflet and appears structurally normal. 12. There is no evidence of aortic regurgitation. 13. There is no evidence of aortic stenosis. 14. Mild mitral regurgitation is present. 15. Mild tricuspid regurgitation present. 16. There is no evidence of pulmonary hypertension. 17. The right ventricular systolic pressure, as measured by Doppler, is 28.93mmHg. 18. Trace/mild (physiologic) pulmonic regurgitation. 19. The aortic root size is normal. 20. The inferior vena cava is mildly dilated. 21. There is no pericardial effusion. SPOUT POSITIONER: Annetta York RDCS
== END 2019-12-23 16:30 | disposition home or self-care (01) ==
LOC: EC 05:54 → 3SCARD 07:48 → INTOOBSV 07:48 → 3SCARD 08:12
PROVIDERS: ADMIT Internal Medicine; ATTEND Internal Medicine
DX: R29.810 Facial weakness (principal); I16.0 Hypertensive urgency; R13.10 Dysphagia, unspecified; R63.3 Feeding difficulties; E11.22 Type 2 diabetes mellitus with diabetic chronic kidney disease; I12.9 Hypertensive chronic kidney disease with stage 1 through stage 4 chronic kidney disease, or unspecified chronic kidney disease; N18.3 Chronic kidney disease, stage 3 (moderate); K21.9 Gastro-esophageal reflux disease without esophagitis; M62.89 Other specified disorders of muscle; N17.9 Acute kidney failure, unspecified; H02.533 Eyelid retraction right eye, unspecified eyelid; Z79.4 Long term (current) use of insulin; Z79.899 Other long term (current) drug therapy; Z82.49 Family history of ischemic heart disease and other diseases of the circulatory system; Z83.3 Family history of diabetes mellitus; Z90.5 Acquired absence of kidney; Z90.79 Acquired absence of other genital organ(s); Z98.1 Arthrodesis status; Z88.1 Allergy status to other antibiotic agents; Z88.0 Allergy status to penicillin; Z03.818 Encounter for observation for suspected exposure to other biological agents ruled out
CPT/HCPCS: 96372 ×2; 96374; 96361; 99285; 36415; 93005; 93306; 97165; 92610; 80061; 80053; 80048; 84484; 85025; 85610; 85730; 83036; 87635; 71046; 93880; 70450; 70544; 70547; 70551; G0378 ×3; J3360; J1650 ×2; J7512 ×3

== ENCOUNTER → 2020-12-23 | Outpatient (CLI) | payer BC ==
[2020-12-24 04:02] LABS: Cholesterol 133 mg/dL (0-200); Triglycerides <50.0 mg/dL (0.0-149.0)
[2020-12-24 06:11] LABS: Prostate Specific Antigen <0.1 ng/mL (0.0-4.5)
== END | disposition home or self-care (01) ==
LOC: LABWHC1 15:16
PROVIDERS: ATTEND Nurse Practitioner Adult Health
DX: C61 Malignant neoplasm of prostate (principal); E78.5 Hyperlipidemia, unspecified
CPT/HCPCS: 36415; 80061; 84153

== ENCOUNTER → 2021-07-27 | Outpatient (CLI) | payer BC ==
[2021-07-28 00:10] LABS: Basophils # (A) 0.03 X 10*3/uL (0.00-0.10); Basophils % (A) 0.7 %; Eosinophils # (A) 0.09 X 10*3/uL (0.04-0.35); HCT 47.7 % (39.6-50.0); HGB 15.8 g/dL (13.0-17.0); Lymphocytes # (A) 1.27 X 10*3/uL (0.90-5.00); MCH 29.9 pg (27.0-32.0); MCHC 33.1 g/dL (32.0-37.0); MCV 90.3 fL (80.0-97.0); Mean Platelet Volume 11.2 fL (9.5-12.2); Monocytes # (A) 0.54 X 10*3/uL (0.20-1.00); Monocytes % (A) 11.9 %; Neutrophils # (A) 2.59 X 10*3/uL (1.80-7.70); Neutrophils % (A) 57.2 %; Platelet Count 205 X 10*3/uL (140-440); RBC 5.28 X 10*6/uL (4.40-5.60); RDW 11.9 % (11.5-14.5); WBC 4.53 X 10*3/uL (4.50-10.00)
[2021-07-28 02:58] LABS: Creatine Kinase 292 U/L (35-257); Phosphorus 3.3 mg/dL (2.4-5.1)
[2021-07-28 03:04] LABS: ALT 37 U/L (10-49); AST 42 U/L (14-35); African American GFR (CKD) 58.9 (60.0-200.0); Albumin 4.9 g/dL (3.8-4.9); Albumin/Globulin Ratio 2.29 (1.60-3.17); Alkaline Phosphatase 79 U/L (41-126); BUN/Creat Ratio 11.51 Ratio (12.00-20.00); Blood Urea Nitrogen 16.8 mg/dL (9.0-27.0); Calcium 9.8 mg/dL (8.7-10.3); Carbon Dioxide 20.1 mmol/L (20.0-27.5); Chloride 101 mmol/L (96-109); Chol/HDL Ratio 1.92 Ratio; Globulin 2.1 g/dL (1.6-3.3); Glucose 163 mg/dL (70-110); LDL Cholesterol,Calculated 57.2 mg/dL (0.0-131.0); Non-African American GFR(CKD) 50.8 (60.0-200.0); Potassium 4.1 mmol/L (3.5-5.5); Sodium 143 mmol/L (135-145); VLDL Calculation 11.32 mg/dL (5.00-40.00)
== END | disposition home or self-care (01) ==
LOC: LABWHC1 16:07
PROVIDERS: ATTEND Family Medicine
DX: Z13.220 Encounter for screening for lipoid disorders (principal); N18.31 Chronic kidney disease, stage 3a; Z85.46 Personal history of malignant neoplasm of prostate; I10 Essential (primary) hypertension; R53.83 Other fatigue
CPT/HCPCS: 36415; 80053; 80061; 80069; 82306; 82550; 83721; 83970; 84153; 84402; 84403; 84439; 84443; 84481; 85025

== ENCOUNTER 2021-12-29 23:00 | Emergency (ER) | payer BC ==
[2021-12-29 23:10] VITALS: BP 197/89; PULSE 81; RESP 18; TEMP 98.1
--- NOTE | 2021-12-30 00:01 | XR ---
EXAMINATION TYPE: XR shoulder complete RT DATE OF EXAM: 12/29/2021 COMPARISON: NONE HISTORY: Shoulder pain TECHNIQUE: 3 views FINDINGS: I see no fracture nor dislocation. Glenohumeral joint is intact. There are no pathologic ca lcifications. IMPRESSION: Negative right shoulder exam
[2021-12-30] MEDS ORDERED: KETOROLAC 15 MG/ML 1 ML VIAL IM STA (00:08)
[2021-12-30] MEDS ORDERED: ACET/COD 300 MG/30 MG STARTER PACK 6 TAB BTL PO STA (00:17)
--- NOTE | 2021-12-30 00:17 | ED ---
General Adult HPI - General Chief complaint: Extremity Injury, Upper Stated complaint: Right shoulder injury Time Seen by Provider: 12/29/21 23:55 Source: patient, RN notes reviewed, old records reviewed Mode of arrival: ambulatory Limitations: no limitations - History of Present Illness Initial comments: Pleasant 61-year-old male presents to the emergency room with complaints of right shoulder pain since Saturday. 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 He states that the following day he reached behind him to lift a bag of Gatorade and developed a worsening sharp pain in his right shoulder. He states that he is unable to lift the arm and having difficulty putting his shirt on. Denies any other joint pain. No fevers. -: days(s) (3) Location: right (shoulder), upper extremity Radiation: non-radiation Quality: constant Consistency: constant Improves with: immobilization, other (Abduction) Worsens with: movement Associated Symptoms: denies other symptoms Treatments Prior to Arrival: NSAID - Related Data Home Medications Medication Instructions Recorded Confirmed Aspirin EC [Ecotrin Low Dose] 81 mg PO HS 12/21/19 12/21/19 Atorvastatin [Lipitor] 10 mg PO HS 12/21/19 12/21/19 Baclofen 10 mg PO TID PRN 12/21/19 12/21/19 Cholecalciferol [Vitamin D3 (25 1,000 unit PO DAILY 12/21/19 12/21/19 Mcg = 1000 Iu)] Docusate [Colace] 100 mg PO DAILY 12/21/19 12/21/19 Empagliflozin [Jardiance] 10 mg PO DAILY 12/21/19 12/21/19 Famotidine 40 mg PO DAILY 12/21/19 12/21/19 Glucos Sul 2Kcl/MSM/Chond/C/Mn 1 cap PO DAILY 12/21/19 12/21/19 [Glucosamine Chondroitin Cap] INSULIN ASPART (NovoLOG) [NovoLOG 15 unit SQ AC-TID 12/21/19 12/21/19 (formulary)] INSULIN ASPART (NovoLOG) [NovoLOG See Protocol SQ AC-TID PRN 12/21/19 12/21/19 (formulary)] Ibuprofen [Motrin] 600 mg PO TID PRN 12/21/19 12/21/19 Insulin Glargine,Hum.rec.anlog 38 - 40 units SQ DAILY 12/21/19 12/21/19 [Toujeo Solostar] Latanoprost/Pf [Latanoprost 0.005% 1 drop BOTH EYES HS 12/21/19 12/21/19 Eye Drop] Ubidecarenone [Co Q-10] 100 mg PO DAILY 12/21/19 12/21/19 hydrALAZINE HCL 25 mg PO TID@1000,1200,0200 12/21/19 12/21/19 lisinopriL 40 mg PO DAILY 12/21/19 12/21/19 metFORMIN HCL ER [Glucophage XR] 500 mg PO DAILY 12/21/19 12/21/19 hydroCHLOROthiazide [Hydrodiuril] 12.5 mg PO DAILY 12/23/19 12/23/19 Previous Rx's Medication Instructions Recorded predniSONE [Deltasone] 0 mg PO DIRECTED #21 tab 12/23/19 Allergies Allergy/AdvReac Type Severity Reaction Status Date / Time clindamycin Allergy Rash/Hives Verified 12/21/19 14:50 Penicillins Allergy Rash/Hives Verified 12/21/19 14:50 Review of Systems ROS Statement: Those systems with pertinent positive or pertinent negative responses have been documented in the HPI. ROS Other: All systems not noted in ROS Statement are negative. Past Medical History Past Medical History: Diabetes Mellitus, GERD/Reflux, Hypertension Additional Past Medical History / Comment(s): type 1 diabetic, GERD History of Any Multi-Drug Resistant Organisms: None Reported Past Surgical History: Appendectomy, Back Surgery, Prostate Surgery Additional Past Surgical History / Comment(s): l4 l5 fusion 2010, R nephrectomy 2002, prostatectomy 2014 Past Psychological History: No Psychological Hx Reported Smoking Status: Never smoker Past Alcohol Use History: Occasional Past Drug Use History: None Reported - Past Family History Father Family Medical History: Diabetes Mellitus, Hypertension Mother Family Medical History: Diabetes Mellitus General Exam Limitations: no limitations General appearance: alert, in no apparent distress Head exam: Present: atraumatic Eye exam: Present: normal appearance Respiratory exam: Present: normal lung sounds bilaterally. Absent: respiratory distress, accessory muscle use Cardiovascular Exam: Present: regular rate, normal rhythm Right Shoulder Exam: Present: tenderness, tenderness over AC joint. Absent: full ROM, swelling Upper Arm exam: Present: normal inspection. Absent: tenderness Elbow exam: Absent: tenderness Vascular: Present: normal capillary refill, radial pulse. Absent: vascular compromise Neurological exam: Present: alert, oriented X3, normal gait Psychiatric exam: Present: normal affect, normal mood Skin exam: Present: warm, dry, normal color. Absent: cyanosis, diaphoretic Course Vital Signs 12/29/21 23:07 Temperature 98.1 F Pulse Rate 81 Respiratory 18 Rate Blood Pressure 197/89 O2 Sat by Pulse 98 Oximetry Medical Decision Making - Medical Decision Making Patient complains of right shoulder pain for 3 days. There is AC joint tenderness. He has pain with abduction, relief with abduction. He states the pain is worse at night and he has been trying to sleep in a chair. Attempts at elevating the arm or external rotation worsens his pain. This consistent with a rotator cuff injury. He was requesting a dose of Toradol and was provided after discussion that it is not recommended for renal patients. He was instructed to wear the sling and follow-up with orthopedics next week. He states that he has seen Dr. Smiley for back surgery in the past. Tylenol was recommended as needed for pain. Patient is agreeable to this plan of care. Case was discussed with Dr. Heredia Disposition Clinical Impression: Shoulder pain, right Disposition: HOME SELF-CARE Condition: Good Instructions (If sedation given, give patient instructions): Shoulder Pain (ED) Additional Instructions: Take Tylenol for pain and follow-up with orthopedics on Saturday. Wear the sling as applied. You may be more comfortable if you sleep in a chair. Is patient prescribed a controlled substance at d/c from ED?: No Referrals: Jesus Manuel Bañuelos MD [Primary Care Provider] - 1-2 days Tiffanie Smiley DO [Doctor of Osteopathic Medicine] - 1-2 days Time of Disposition: 00:15
== END 2021-12-30 00:39 | disposition home or self-care (01) ==
LOC: EC 23:00
DX: M25.511 Pain in right shoulder (principal); E11.9 Type 2 diabetes mellitus without complications; I10 Essential (primary) hypertension; K21.9 Gastro-esophageal reflux disease without esophagitis; Z79.83 Long term (current) use of bisphosphonates; Z88.1 Allergy status to other antibiotic agents; Z88.0 Allergy status to penicillin
CPT/HCPCS: 73030; 99283; 96372; J1885

== ENCOUNTER → 2022-01-01 | Outpatient (CLI) | payer BC ==
--- NOTE | 2022-01-01 16:45 | US ---
EXAMINATION TYPE: US venous doppler duplex UE RT DATE OF EXAM: 01/01/2022 COMPARISON: NONE CLINICAL HISTORY: R22.31 SWELLING, MASS AND LUMP. SIDE PERFORMED: Right Arm: Negative for DVT IMPRESSION: No evidence of deep vein thrombosis in the right arm. No pathologic fluid collection
== END | disposition home or self-care (01) ==
LOC: RADUSWWP 15:50
PROVIDERS: ATTEND Family Medicine
DX: R22.31 Localized swelling, mass and lump, right upper limb (principal)
CPT/HCPCS: 85379

== ENCOUNTER → 2022-01-25 | Outpatient (CLI) | payer BC ==
--- NOTE | 2022-01-26 22:09 | XR ---
EXAMINATION TYPE: XR chest 2V DATE OF EXAM: 01/25/2022 COMPARISON: X-ray dated 03/14/2020 HISTORY: Benign lipomatous neoplasm of the skin TECHNIQUE: Frontal and lateral views of the chest are obtained. FINDINGS: Subtle density superimposed on the mid thoracic vertebrae in the lateral view which could represent o steophytosis however other lesion cannot be excluded. Further CT assessment can be considered. Grossly unremarkable lungs otherwise. No pleural effusion or pneumothorax. No cardiomegaly. Subtle ao rtic atherosclerotic calcification. Mild degenerative changes of the thoracic spine. IMPRESSION: Questionable osteophytosis versus other lesion in the lateral view as described above. Further CT ass essment can be considered.
== END | disposition home or self-care (01) ==
LOC: RADXRMAIN 15:16
PROVIDERS: ATTEND Family Medicine
DX: D17.1 Benign lipomatous neoplasm of skin and subcutaneous tissue of trunk (principal)
CPT/HCPCS: 71046

== ENCOUNTER → 2022-02-05 | Outpatient (CLI) | payer BC ==
--- NOTE | 2022-02-05 08:52 | US ---
EXAMINATION TYPE: US chest DATE OF EXAM: 02/05/2022 COMPARISON: EXAMINATION TYPE: US chest DATE OF EXAM: 02/05/2022 COMPARISON: NONE CLINICAL HISTORY: D17.1 BENIGN LIPOMATOUS NEOPLASM OF SKIN, SUBCU OF. Left lower back lump unable to palpitate and patient can't either. Scanned area of concern no abnormalities visualized. IMPRESSION: As above. No suspicious solid or cystic mass or fluid collection seen at the site of pal pable abnormality left lower back subcutaneous tissue.
== END | disposition home or self-care (01) ==
LOC: RADUSWWP 07:36
PROVIDERS: ATTEND Family Medicine
DX: D17.1 Benign lipomatous neoplasm of skin and subcutaneous tissue of trunk (principal)
CPT/HCPCS: 76604

== ENCOUNTER → 2022-02-28 | Outpatient (CLI) | payer BC | END | disposition home or self-care (01) | LOC: LABWHC1 11:51 | PROVIDERS: ATTEND Urology | DX: C61 Malignant neoplasm of prostate (principal) | CPT/HCPCS: 36415; 84153 ==

== ENCOUNTER → 2022-02-28 | Outpatient (CLI) | payer BC ==
--- NOTE | 2022-02-28 13:06 | XR ---
EXAMINATION TYPE: XR chest 2V DATE OF EXAM: 02/28/2022 COMPARISON: 01/25/2022 INDICATION: Right renal cancer TECHNIQUE: Frontal and lateral views of the chest are obtained. FINDINGS: The heart size is normal. The pulmonary vasculature is normal. The lungs are clear. No suspicious nodules are evident. No suspicious expansile lesions within the o sseous structures is evident. IMPRESSION: 1. No acute pulmonary process.
== END | disposition home or self-care (01) ==
LOC: RADXRMAIN 12:23
PROVIDERS: ATTEND Urology
DX: C64.1 Malignant neoplasm of right kidney, except renal pelvis (principal)
CPT/HCPCS: 71046

== ENCOUNTER 2022-05-07 15:34 | Observation (INO) | payer BC ==
--- NOTE | 2022-05-07 17:48 | CT ---
EXAMINATION TYPE: CT brain wo con DATE OF EXAM: 05/07/2022 COMPARISON: 12/21/2019 HISTORY: c/o double vision in left eye CT DLP: 1102.4 mGycm Automated exposure control for dose reduction was used. Ventricles are of normal size. There is no mass effect or midline shift. No sign of intracranial hemo rrhage. Calvarium is intact. The skull base is intact. There is normal aeration of the mastoid sinuse s. IMPRESSION: Negative unenhanced head CT scan. No change.
[2022-05-07 20:27] LABS: Glucose,Whole Blood 119 mg/dL (70-110)
[2022-05-07] MEDS ORDERED: PROCHLORPERAZINE INJ 10 MG/2 ML VIAL IVP STA (21:01)
[2022-05-07] MEDS ORDERED: diphenhydrAMINE 50 MG/ML 1 ML VIAL IVP STA (21:01)
[2022-05-07] MEDS ORDERED: SODIUM CHLORIDE 0.9% 1,000 ML IV STA (21:01)
[2022-05-07] MEDS ORDERED: KETOROLAC 15 MG/ML 1 ML VIAL IVP STA (21:01)
[2022-05-07] MEDS ORDERED: LORazepam 2 MG/ML INJ IV PRN (21:03)
[2022-05-07 21:26] LABS: Basophils % (A) 1 %; Eosinophils # (A) 0.1 k/uL (0-0.7); Eosinophils % (A) 2 %; HCT 45.3 % (39.0-53.0); Lymphocytes # (A) 1.1 k/uL (1.0-4.8); Lymphocytes % (A) 28 %; MCHC 35.3 g/dL (31.0-37.0); MCV 87.7 fL (80.0-100.0); Mean Platelet Volume 8.5; Monocytes # (A) 0.3 k/uL (0-1.0); Monocytes % (A) 7 %; Neutrophils # (A) 2.3 k/uL (1.3-7.7); Neutrophils % (A) 59 %; Platelet Count 177 k/uL (150-450); RBC 5.17 m/uL (4.30-5.90); RDW 12.2 % (11.5-15.5); WBC 3.9 k/uL (3.8-10.6)
[2022-05-07] MEDS ORDERED: ASPIRIN 325 MG TAB PO STA (21:29)
--- NOTE | 2022-05-07 21:32 | ED ---
General Adult HPI - General Chief complaint: Headache Stated complaint: Left eye swelling and pain Time Seen by Provider: 05/07/22 20:30 Source: patient, RN notes reviewed, old records reviewed Mode of arrival: ambulatory Limitations: no limitations - History of Present Illness Initial comments: Patient is a 62-year-old male with past medical history remarkable for diabetes, hypertension prior Dennison's palsy who presents emergency Department complaining of left eye pain, as well as diplopia. Symptoms have been slightly worsening over the last 2 weeks. His follow-up with the telesales consultant multiple times and they diagnosed him with a fatigued eye muscle. Is been on prednisone drops, with no improvement in symptoms. Presents emergency department today for further evaluation. Endorses double vision, particularly when looking to the right. Denies shortness of breath. Denies chest pain, abdominal pain, nausea, vomiting. Does endorse a mild headache on the left side of his head. States it is been more or less consistent with minimal improvement from Motrin or Tylenol at home. States he only has one kidney. Denies any weakness or numbness. No other acute complaint at this time. Presents for further evaluation. Is concerned he may be having a stroke. 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 - Related Data Home Medications Medication Instructions Recorded Confirmed Aspirin EC [Ecotrin Low Dose] 81 mg PO HS 12/21/19 05/07/22 Empagliflozin [Jardiance] 10 mg PO DAILY 12/21/19 05/07/22 Famotidine 40 mg PO HS 12/21/19 05/07/22 Glucos Sul 2Kcl/MSM/Chond/C/Mn 1 cap PO HS 12/21/19 05/07/22 [Glucosamine Chondroitin Cap] INSULIN ASPART (NovoLOG) [NovoLOG 15 unit SQ AC-TID 12/21/19 05/07/22 (formulary)] INSULIN ASPART (NovoLOG) [NovoLOG See Protocol SQ AC-TID PRN 12/21/19 05/07/22 (formulary)] Insulin Glargine,Hum.rec.anlog 38 units SQ HS 12/21/19 05/07/22 [Toujeo Solostar] Latanoprost/Pf [Latanoprost 0.005% 1 drop BOTH EYES HS 12/21/19 05/07/22 Eye Drop] Ubidecarenone [Co Q-10] 200 mg PO HS 12/21/19 05/07/22 metFORMIN HCL ER [Glucophage XR] 500 mg PO HS 12/21/19 05/07/22 Cinnamon Bark [Cinnamon] 1,000 mg PO HS 05/07/22 05/07/22 Cranberry Fruit Extract [Cranberry] 500 mg PO HS 05/07/22 05/07/22 Ibuprofen [Motrin] 800 mg PO Q8H PRN 05/07/22 05/07/22 Multivitamins, Thera [Multivitamin 1 tab PO HS 05/07/22 05/07/22 (formulary)] Zinc Gluconate [Zinc] 100 mg PO HS 05/07/22 05/07/22 amLODIPine [Norvasc] 10 mg PO HS 05/07/22 05/07/22 hydrALAZINE HCL [Apresoline] 50 mg PO TID 05/07/22 05/07/22 lisinopriL [Zestril] 20 mg PO HS 05/07/22 05/07/22 Allergies Allergy/AdvReac Type Severity Reaction Status Date / Time clindamycin Allergy Rash/Hives Verified 05/07/22 22:26 Penicillins Allergy Unknown Verified 05/07/22 22:26 Childhood Review of Systems ROS Statement: Those systems with pertinent positive or pertinent negative responses have been documented in the HPI. Review of Systems: CONST: Denies fever EYES: Endorses blurry vision, left eye with swelling. ENT: Denies nasal congestion C/V: Denies Chest pain RESP: Denies shortness of breath GI: Denies abdominal pain : Denies dysuria SKIN: Denies rash. MSK: Denies joint pain. NEURO: Denies headache ROS Other: All systems not noted in ROS Statement are negative. Past Medical History Past Medical History: Diabetes Mellitus, GERD/Reflux, Hypertension Additional Past Medical History / Comment(s): type 1 diabetic, GERD History of Any Multi-Drug Resistant Organisms: None Reported Past Surgical History: Appendectomy, Back Surgery, Prostate Surgery Additional Past Surgical History / Comment(s): l4 l5 fusion 2010, R nephrectomy 2002, prostatectomy 2014 Past Psychological History: No Psychological Hx Reported Smoking Status: Never smoker Past Alcohol Use History: Occasional Past Drug Use History: None Reported - Past Family History Father Family Medical History: Diabetes Mellitus, Hypertension Mother Family Medical History: Diabetes Mellitus General Exam - General Exam Comments Initial Comments: General: Appears in no acute distress. HEAD: Normal with no signs of head trauma. EYES: PERRLA, pupils are 3 mm and equal bilaterally. Right eye has full range of motion of extraocular movements. Left eye has good range of motion superiorly, inferiorly, and laterally. Has a medial rectus palsy. Vision and both eyes as well as isolated is 20/30. He does use corrective lenses. There is some left superior eyelid swelling. No obvious skin changes. No pain with movement of the eye. ENT: Hearing grossly intact, normal oropharynx. RESPIRATORY: Clear breath sounds bilaterally. No wheezes, rales, or rhonchi. C/V: Regular rate and rhythm. S1 and S2 auscultated, no edema, peripheral pulses 2+ and intact throughout ABD: Abd is soft, nontender, nondistended EXT: Normal range of motion, no obvious deformity SKIN: No rashes or lesions observed on exposed skin. NEURO: Alert and oriented x 4. Cranial nerves II, and IV-XII intact. No focal sensory or strength deficits. GCS of 15. Patient has a isolated left medial rectus palsy. Remainder of cranial nerves III bilaterally is intact. Limitations: no limitations Course Vital Signs 05/07/22 16:17 Temperature 98.4 F Pulse Rate 77 Respiratory 20 Rate Blood Pressure 196/98 O2 Sat by Pulse 99 Oximetry Medical Decision Making - Medical Decision Making Based on the patient's presentation and physical exam, I'm concerned for possible intracranial process for his worsening diplopia, pain behind left eye, as well as left medial rectus palsy. CT imaging was obtained while the patient was in triage and was negative for any acute process. Symptoms have been ongoing for 2 weeks. Remainder of the workup and neuro exam is unremarkable. Patient's point of care blood sugar is within normal limits. I discussed with the patient the option of obtaining CT angiogram to evaluate for arterial occlusion, aneurysm, possible stroke as the cause of his symptoms. He only has one kidney with reduced kidney function. He is concerned regarding this kidney. I did explain to him that we can obtain MRIs which are more detail but cannot be done urgently. As the patient is been having 2 weeks of these symptoms with mildly worsening symptoms slowly over the last 2 weeks, I do believe it is reasonable to wait for MRI in the morning if patient is willing. He doesn't understand the risks involved and was in agreement with the plan. I discussed the case with on-call neurology, Dr. Currie. He was in agreement that as the patient is concerned regarding the renal function, it is reasonable to wait to obtain MRI, MRA tomorrow. He agrees that this is recommended in the current setting, as we cannot rule out possible stroke. Could be related to his diabetes. He accepted the consult. No Further recommendations at this time except for MRI, MRA. I will provide the patient with a dose of aspirin as a CT brain shows no signs of bleeding. We will obtain basic labs. MRI/MRA were ordered. He was given a migrant cocktail for his headache. Patient was in agreement this plan. He is claustrophobic and 1 dose of Ativan was ordered for his MRI. Vital signs are within acceptable limits. We will restart his home medications. I spoke with the admitting physician, Dr. Holder of [facility] emergency department who accepted the patient. He was admitted to observation telemetry in stable condition. - Lab Data Result diagrams: 05/07/22 21:21 05/07/22 21:21 Lab Results 05/07/22 05/07/22 05/07/22 Range/Units 20:26 21:21 21:21 WBC 3.9 (3.8-10.6) k/uL RBC 5.17 (4.30-5.90) m/uL Hgb 16.0 (13.0-17.5) gm/dL Hct 45.3 (39.0-53.0) % MCV 87.7 (80.0-100.0) fL MCH 31.0 (25.0-35.0) pg MCHC 35.3 (31.0-37.0) g/dL RDW 12.2 (11.5-15.5) % Plt Count 177 (150-450) k/uL MPV 8.5 Neutrophils % 59 % Lymphocytes % 28 % Monocytes % 7 % Eosinophils % 2 % Basophils % 1 % Neutrophils # 2.3 (1.3-7.7) k/uL Lymphocytes # 1.1 (1.0-4.8) k/uL Monocytes # 0.3 (0-1.0) k/uL Eosinophils # 0.1 (0-0.7) k/uL Basophils # 0.0 (0-0.2) k/uL Sodium 140 (137-145) mmol/L Potassium 3.3 L (3.5-5.1) mmol/L Chloride 110 H (98-107) mmol/L Carbon Dioxide 21 L (22-30) mmol/L Anion Gap 9 mmol/L BUN 16 (9-20) mg/dL Creatinine 1.00 (0.66-1.25) mg/dL Est GFR (CKD-EPI)AfAm >90 (>60 ml/min/1.73 sqM) Est GFR (CKD-EPI)NonAf 80 (>60 ml/min/1.73 sqM) Glucose 89 (74-99) mg/dL POC Glucose (mg/dL) 119 H (70-110) mg/dL POC Glu Braid Folder ID [place] Sil[place] Calcium 7.6 L (8.4-10.2) mg/dL Magnesium 1.7 (1.6-2.3) mg/dL Disposition Clinical Impression: Diplopia Narrative: left medial rectus palsy Disposition: ADMITTED IP TO THIS HOSP Condition: Stable Referrals: Jesus Manuel Bañuelos MD [Primary Care Provider] - 1-2 days Time of Disposition: 21:20
[2022-05-07 21:36] LABS: African American GFR (CKD) >90 (>60 ml/min/1.73 sqM); Anion Gap 9 mmol/L; Blood Urea Nitrogen 16 mg/dL (9-20); Calcium 7.6 mg/dL (8.4-10.2); Carbon Dioxide 21 mmol/L (22-30); Chloride 110 mmol/L (98-107); Glucose 89 mg/dL (74-99); Magnesium 1.7 mg/dL (1.6-2.3); Non-African American GFR(CKD) 80 (>60 ml/min/1.73 sqM); Potassium 3.3 mmol/L (3.5-5.1); Sodium 140 mmol/L (137-145)
[2022-05-07] MEDS ORDERED: POTASSIUM CHLORIDE ER 20 MEQ TAB.ER PO STA (21:37)
[2022-05-07] MEDS ORDERED: NALOXONE 0.4 MG/ML 1 ML VIAL IV PRN (21:58)
[2022-05-07] MEDS ORDERED: FAMOTIDINE 20 MG TAB PO STA (22:42)
[2022-05-07] MEDS ORDERED: INSULIN DETEMIR (LEVEMIR) 100 UNIT/ML SYR SQ SCH (22:45)
[2022-05-08] MEDS ORDERED: MAG HYDROX/AL HYDROX/SIMETH 30 ML CUP PO PRN
[2022-05-08] MEDS ORDERED: INSULIN DETEMIR (LEVEMIR) 100 UNIT/ML SYR SQ SCH (00:38)
[2022-05-08] MEDS ORDERED: MORPHINE SULFATE 2 MG/ML SYRINGE IVP PRN (02:18)
--- NOTE | 2022-05-08 03:27 | P.HPIM ---
History of Present Illness H&P Date: 05/07/22 Chief Complaint: left eye pain and dipolopia 62 year old male with DM , hypertension , history of renal cancer patient comes in with persistent diplopia and left eye weakness of 3 weeks duration , started suddenly no precipitating factors, he went and saw ophthalmology twice, did full exam and diagnosed him with fatigued eye muscle, and gave him a prescription for prednison. he reports no improvement in his eye condition since then and today presenting seeking help . he reports pain behind the left eye , but no ophthalmoplegia. no excessive tearing no blurry vision , no swelling. he noticed droopy upper eyelid and diplopia. he denies fever, chills, eye trauma, URI symptoms , headache, or any other focal neuro deficits. blood work in the ED showed hypokalemia otherwise unremarkable CT of the brain negative no head and neck CTA done , due to patient having one kidney and was having concerns regarding contrast. patient admitted for neurology evaluation and MRI in the morning patient has history of bells palsy on the left side Review of Systems Pertinent positives as noted in HPI. All other systems were reviewed and are negative Past Medical History Past Medical History: Diabetes Mellitus, GERD/Reflux, Hypertension Additional Past Medical History / Comment(s): type 1 diabetic, GERD History of Any Multi-Drug Resistant Organisms: None Reported Past Surgical History: Appendectomy, Back Surgery, Prostate Surgery Additional Past Surgical History / Comment(s): l4 l5 fusion 2010, R nephrectomy 2002, prostatectomy 2014 Past Psychological History: No Psychological Hx Reported Smoking Status: Never smoker Past Alcohol Use History: Occasional Past Drug Use History: None Reported - Past Family History Father Family Medical History: Diabetes Mellitus, Hypertension Mother Family Medical History: Diabetes Mellitus Medications and Allergies Home Medications Medication Instructions Recorded Confirmed Type Aspirin EC [Ecotrin Low Dose] 81 mg PO HS 12/21/19 05/07/22 History Empagliflozin [Jardiance] 10 mg PO DAILY 12/21/19 05/07/22 History Famotidine 40 mg PO HS 12/21/19 05/07/22 History Glucos Sul 2Kcl/MSM/Chond/C/Mn 1 cap PO HS 12/21/19 05/07/22 History [Glucosamine Chondroitin Cap] INSULIN ASPART (NovoLOG) [NovoLOG 15 unit SQ AC-TID 12/21/19 05/07/22 History (formulary)] INSULIN ASPART (NovoLOG) [NovoLOG See Protocol SQ AC-TID PRN 12/21/19 05/07/22 History (formulary)] Insulin Glargine,Hum.rec.anlog 38 units SQ HS 12/21/19 05/07/22 History [Toortiz Solostar] Latanoprost/Pf [Latanoprost 0.005% 1 drop BOTH EYES HS 12/21/19 05/07/22 History Eye Drop] Ubidecarenone [Co Q-10] 200 mg PO HS 12/21/19 05/07/22 History metFORMIN HCL ER [Glucophage XR] 500 mg PO HS 12/21/19 05/07/22 History Cinnamon Bark [Cinnamon] 1,000 mg PO HS 05/07/22 05/07/22 History Cranberry Fruit Extract [Cranberry] 500 mg PO HS 05/07/22 05/07/22 History Ibuprofen [Motrin] 800 mg PO Q8H PRN 05/07/22 05/07/22 History Multivitamins, Thera [Multivitamin 1 tab PO HS 05/07/22 05/07/22 History (formulary)] Zinc Gluconate [Zinc] 100 mg PO HS 05/07/22 05/07/22 History amLODIPine [Norvasc] 10 mg PO HS 05/07/22 05/07/22 History hydrALAZINE HCL [Apresoline] 50 mg PO TID 05/07/22 05/07/22 History lisinopriL [Zestril] 20 mg PO HS 05/07/22 05/07/22 History Allergies Allergy/AdvReac Type Severity Reaction Status Date / Time clindamycin Allergy Rash/Hives Verified 05/07/22 22:26 Penicillins Allergy Unknown Verified 05/07/22 22:26 Childhood Physical Exam Vitals: Vital Signs Temp Pulse Resp BP Pulse Ox 05/07/22 16:17 98.4 F 77 20 196/98 99 Intake and Output 05/07/22 05/07/22 05/07/22 06:59 14:59 22:59 Other: Weight 84.822 kg Constitutional: No acute distress, conversant, pleasant Eyes: Anicteric sclerae, moist conjunctiva, Pupils equal round reactive to light ENMT: NC/AT Oropharynx clear, no erythema, or exudates Neck: Supple, no masses, or JVD No carotid bruits No thyromegaly Lungs: Clear to auscultation Clear to percussion Normal respiratory effort, no accessory muscle use Cardiovascular: Heart regular in rate and rhythm, No murmurs, gallops, or rubs No peripheral edema Abdominal: Soft Nontender, no guarding, rebound or rigidity Abdomen moving with respiration Normoactive bowel sounds No hepatomegaly, No splenomegaly No palpable mass No abdominal wall hernia noted Skin: Normal temperature, tone, texture, turgor No induration No subcutaneous nodules No rash, lesions No ulcers Extremities: No digital cyanosis No clubbing Pedal pulses intact and symmetrical Radial pulses intact and symmetrical No calf tenderness Psychiatric: Alert and oriented to person, place and time Appropriate affect fair judgement Neuro Muscles Strength 5/5 in all 4 extremities Sensation to light touch grossly present throughout Cranial nerves II-XII grossly intact except for left 3rd cranial nerve with eyelid ptosis , , and limitation in the range in eye movement No focal sensory deficits Lymphatics: no palpable cervical or supraclavicular , or inguinal lymph nodes Results CBC & Chem 7: 05/07/22 21:21 05/07/22 21:21 Labs: Abnormal Lab Results - Last 24 Hours (Table) 05/07/22 05/07/22 Range/Units 20:26 21:21 Potassium 3.3 L (3.5-5.1) mmol/L Chloride 110 H (98-107) mmol/L Carbon Dioxide 21 L (22-30) mmol/L POC Glucose (mg/dL) 119 H (70-110) mg/dL Calcium 7.6 L (8.4-10.2) mg/dL Assessment and Plan Assessment: left eye muscle weakness, with ptosis CT brain negative neurology eval MRI in the morning supportive care patch left eye to help with diplopia pain control with tylenol , morphine PRN hypokalemia , replace and follow up level s chornic conditions hypertension resume lisinopril , amlodipine DM insulin sliding scale and basal insulin GERD PPI DVT PPX SCDs full code
[2022-05-08 03:35] LABS: Glucose,Whole Blood 193 mg/dL (70-110)
[2022-05-08] MEDS: hydrALAZINE HCL 50 MG TAB PO SCH ×4 (03:36→22:59)
[2022-05-08] MEDS: amLODIPine 10 MG TAB PO SCH ×2 (04:43→21:03)
[2022-05-08 06:39] LABS: Basophils % (A) 1 %; Eosinophils # (A) 0.1 k/uL (0-0.7); Eosinophils % (A) 2 %; HCT 41.7 % (39.0-53.0); HGB 14.4 gm/dL (13.0-17.5); Lymphocytes # (A) 1.1 k/uL (1.0-4.8); Lymphocytes % (A) 34 %; MCH 30.8 pg (25.0-35.0); MCHC 34.6 g/dL (31.0-37.0); Mean Platelet Volume 8.8; Monocytes # (A) 0.3 k/uL (0-1.0); Monocytes % (A) 10 %; Neutrophils # (A) 1.7 k/uL (1.3-7.7); Neutrophils % (A) 51 %; Platelet Count 156 k/uL (150-450); RBC 4.68 m/uL (4.30-5.90); RDW 12.3 % (11.5-15.5); WBC 3.3 k/uL (3.8-10.6)
[2022-05-08 06:46] LABS: Calcium 8.9 mg/dL (8.4-10.2); Potassium 4.6 mmol/L (3.5-5.1)
[2022-05-08 07:25] LABS: Glucose,Whole Blood 131 mg/dL (70-110)
[2022-05-08] MEDS: PANTOPRAZOLE 40 MG TABLET PO SCH (07:47)
[2022-05-08] MEDS: INSULIN ASPART (NovoLOG) 100 UNIT/ML VIAL SQ SCH ×7 (07:48→21:10)
[2022-05-08] MEDS ORDERED: metFORMIN 500 MG TAB PO SCH (09:00)
[2022-05-08] MEDS ORDERED: LORazepam 1 MG/0.5 ML VIAL IV PRN (09:36)
--- NOTE | 2022-05-08 10:24 | P.CNNES ---
History of Present Illness Consult date: 05/08/22 Requesting physician: Rickie Will Reason for Consult: isolated left medial rectus palsy History of Present Illness: This is a 62-year-old gentleman with history of diabetes, hypertension, Dennison's palsy over the left side about 2 years ago, renal cancer s/p resection and has only one functional since 2002 who presents to the emergency department because of diplopia and visual disturbance over the left eye. Patient stated that the towards end of March 2022 a day after he got to covert vaccine posterior he noticed that he is having the blurry vision and double vision and he felt the objects are 1 on top another and it was on the left side. When he covered the left eye that diplopia resolved but we covered the right eye he still had the diplopia. He denies any headache associated with it. He has mild pain with eye movement and he felt was 1 -3/10. He didn't notice ptosis over the left eye associate with this but denies any ptosis of the right. Denies any worsening of the symptoms as a day goes on or with more movement or activity He denies any nausea, vomiting, denies any slurring the speech, numbness anywhere, any focal weakness and any difficulty getting his words out. He was evaluated by an maple syrup maker twice locally any and he was notified that he had the muscle palsy and a lazy eye over the left and he was given prednisone ointments for week which the he completed but did not notice any improvement. As a result he decided to come to the hospital to rule out stroke since not noticing any improvement. She denies any history of stroke or TIA. And ice tobacco use. Patient states that he takes baby aspirin 81 mg daily at home. Of note, the ED physician (Dr. Will) contacted me regarding this case yesterday via phone and he notified me about the patient and seems that the patient refused CT angiography because of only functional kidney and refusing contrast. Some other workup during this hospital visit consisted of: CT of the head is reported as negative on has had computed tomography scan. No change. I personally reviewed the CT of the head and there is no acute or subacute ischemia. There is no intrathecal hemorrhage. There is no mass effect that was able to appreciate. Initial calcium 7.6 is the repeated calcium is 8.9. Review of Systems Review of system: The 12 point system was reviewed and apparent positive and ne gative per HPI. Past Medical History Past Medical History: Diabetes Mellitus, GERD/Reflux, Hypertension Additional Past Medical History / Comment(s): type 1 diabetic, GERD History of Any Multi-Drug Resistant Organisms: None Reported Past Surgical History: Appendectomy, Back Surgery, Prostate Surgery Additional Past Surgical History / Comment(s): l4 l5 fusion 2010, R nephrectomy 2002, prostatectomy 2014 Past Psychological History: No Psychological Hx Reported Smoking Status: Never smoker Past Alcohol Use History: Occasional Past Drug Use History: None Reported - Past Family History Father Family Medical History: Diabetes Mellitus, Hypertension Mother Family Medical History: Diabetes Mellitus Medications and Allergies Home Medications Medication Instructions Recorded Confirmed Type Aspirin EC [Ecotrin Low Dose] 81 mg PO HS 12/21/19 05/07/22 History Empagliflozin [Jardiance] 10 mg PO DAILY 12/21/19 05/07/22 History Famotidine 40 mg PO HS 12/21/19 05/07/22 History Glucos Sul 2Kcl/MSM/Chond/C/Mn 1 cap PO HS 12/21/19 05/07/22 History [Glucosamine Chondroitin Cap] INSULIN ASPART (NovoLOG) [NovoLOG 15 unit SQ AC-TID 12/21/19 05/07/22 History (formulary)] INSULIN ASPART (NovoLOG) [NovoLOG See Protocol SQ AC-TID PRN 12/21/19 05/07/22 History (formulary)] Insulin Glargine,Hum.rec.anlog 38 units SQ HS 12/21/19 05/07/22 History [Toujeo Solostar] Latanoprost/Pf [Latanoprost 0.005% 1 drop BOTH EYES 12/21/19 05/07/22 History Eye Drop] Ubidecarenone [Co Q-10] 200 mg PO HS 12/21/19 05/07/22 History metFORMIN HCL ER [Glucophage XR] 500 mg PO HS 12/21/19 05/07/22 History Cinnamon Bark [Cinnamon] 1,000 mg PO HS 05/07/22 05/07/22 History Cranberry Fruit Extract [Cranberry] 500 mg PO HS 05/07/22 05/07/22 History Ibuprofen [Motrin] 800 mg PO Q8H PRN 05/07/22 05/07/22 History Multivitamins, Thera [Multivitamin 1 tab PO HS 05/07/22 05/07/22 History (formulary)] Zinc Gluconate [Zinc] 100 mg PO HS 05/07/22 05/07/22 History amLODIPine [Norvasc] 10 mg PO HS 05/07/22 05/07/22 History hydrALAZINE HCL [Apresoline] 50 mg PO TID 05/07/22 05/07/22 History lisinopriL [Zestril] 20 mg PO HS 05/07/22 05/07/22 History Allergies Allergy/AdvReac Type Severity Reaction Status Date / Time clindamycin Allergy Rash/Hives Verified 05/07/22 22:26 Penicillins Allergy Unknown Verified 05/07/22 22:26 Childhood Physical Examination - Vital Signs Vital Signs: Vital Signs Temp Pulse Pulse Resp BP BP Pulse Ox 05/08/22 07:20 98.7 F 50 L 18 157/75 97 05/08/22 06:58 74 16 154/77 99 05/08/22 05:16 82 16 131/81 99 05/08/22 02:00 84 16 164/87 99 05/07/22 16:17 98.4 F 77 20 196/98 99 Intake and Output 05/07/22 05/08/22 05/08/22 22:59 06:59 14:59 Other: # Voids 1 Weight 84.822 kg 84.822 kg GENERAL: The patient is lying in bed and is not in acute distress. CHEST: The heart rate is regular rate rhythm. No murmurs to auscultation. LUNG: Clear to auscultation bilaterally no wheezing noted throughout. Not labored breathing. ABDOMEN/GI: Bowel sounds present in all 4 quadrants. No tenderness to palpation throughout. NEUROLOGICAL: Higher mental function: The patient is awake, alert, oriented to self, place and time. Patient is following commands. No aphasia and no neglect. Cranial nerves: Primary gaze is midline bilaterally. The pupils are round, equal and reactive to light. Appears to have intact accomodation over the right eye but not left. Visual rodriguez are full to confrontation throughout. Extraocular movement is palsy looking to left medial and up and out. No nysagumus. Has ptosis over the left eye that is moderate in severity. Facial sensation is normal to touch throughout. The facial strength is mild decrease left upper and lower facial weakness (old Dennison's Palsy). Hearing is normal bilaterally to hand rub. Tongue is midline and moved [id number] without any difficulty. No dysarthria is noted. Shoulder shrug is normal bilaterally. Motor: The strength is 5 over 5 throughout. Normal tone and bulk. Cerebellum: Normal finger to nose heel to barriga bilaterally. Sensation: Sensation is normal to touch throughout. Reflexes (right/left): 2+ throughout. Plantars are mute bilaterally. Results - Laboratory Findings CBC and BMP: 05/08/22 06:16 05/08/22 06:16 Abnormal Lab Findings: Abnormal Labs 05/07/22 05/07/22 05/08/22 20:26 21:21 03:33 WBC Potassium 3.3 L Chloride 110 H Carbon Dioxide 21 L Creatinine Glucose POC Glucose (mg/dL) 119 H 193 H Calcium 7.6 L 05/08/22 05/08/22 05/08/22 06:16 06:16 07:23 WBC 3.3 L Potassium Chloride 109 H Carbon Dioxide Creatinine 1.29 H Glucose 156 H POC Glucose (mg/dL) 131 H Calcium Assessment and Plan Assessment: Partial left oculomotor (3rd) nerve palsy since end of March 2022 (having symptoms for past two week and on examination appears left medial rectus palsy and inferior oblique): 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 Long-standing history of diabetes for the past 3 years Long-standing history of hypertension for about 30 years History of Dennison's palsy about 2 years ago on the left facial and it's mild severity History of renal cancer s/p resection and has only one functional since 2002 Plan: MRI of the brain and MRA of the head is ordered without. Patient refuses any contrast because he has only one functional kidney. I ordered TSH, hemoglobin A1c, vitamin B12 In the ED the patient was given aspirin 325 once and was continued on his home dose of aspirin 81 mg daily at bedtime. We'll defer the rest of the medical management to the primary team. Upon discharge the patient to continue to follow-up with his maple syrup maker within 1-2 weeks. Thank you for the consultation. Sina Currie M.D. Neuro-Hospitalist Time with Patient: Greater than 30
--- NOTE | 2022-05-08 11:35 | MR ---
EXAMINATION TYPE: MR angio head wo con DATE OF EXAM: 05/08/2022 COMPARISON: 12/03/2019 HISTORY: Isolated left medial rectus palsy TECHNIQUE: Utilizing 3-D [id number] intracranial MRA of the [place] was performed. FINDINGS: Codominant vertebrobasilar system. Vertebral arteries patent to basilar junction. Small caliber verte brobasilar system noted. Posterior cerebral arteries originate from the anterior circulation.. No siz able aneurysm. Images of the anterior circulation show small caliber patent anterior communicating ar jesus. IMPRESSION: 1. No evidence of vascular malformation or sizable aneurysm. 2. Diminutive vertebrobasilar system can occasionally be associated with vertebrobasilar insufficienc y correlate clinically.
--- NOTE | 2022-05-08 11:39 | MR ---
EXAMINATION TYPE: MR brain wo con DATE OF EXAM: 05/08/2022 COMPARISON: 12/23/2019 HISTORY: Isolated left medial rectus palsy TECHNIQUE: T1-weighted sagittal, T2, FLAIR, and diffusion axial, and T2 coronal coronal views of the brain are submitted. FINDINGS: There is no evidence of acute ischemia. The ventricles, basal cisterns, and sulci overlying the conv exities are consistent with mild degenerative change. Periventricular areas of abnormal signal are n onspecific but most mild remote wedging of matter ischemia. There is no mass effect. Craniocervical junction maintained. Sella turcica has a normal appearance. No cerebellopontine angle mass. IMPRESSION: 1. No acute intracranial process. 2. Mild degenerative change and mild nonspecific white matter changes most remotely ischemic
[2022-05-08 12:31] LABS: Glucose,Whole Blood 145 mg/dL (70-110)
[2022-05-08] MEDS: DAPAGLIFLOZIN PROPANEDIOL 10 MG TABLET PO SCH (12:31)
--- NOTE | 2022-05-08 16:07 | P.PN ---
Subjective Progress Note Date: 05/08/22 Principal diagnosis: diplopia Hospital Course: 62-year-old male with past medical history of Dennison's palsy, hypertension, diabetes, renal cancer status post resection presenting with diplopia and left- sided weakness. Patient recently saw an ditch repairer, and was diagnosed with possible fatigued I muscle. He was started on prednisone. He continued to have significant left-sided ptosis and diplopia. He decided to come to the hospital for further evaluation. Subjective: Patient seen and examined at bedside. No acute events overnight. He continues to have an diplopia. He denies any chest pain, shortness of breath, abdominal pain, urinary or bowel issues. Pertinent positives and negatives as discussed above, a complete review of systems was performed and all other systems are negative. Vitals Signs Reviewed. General: nontoxic, no distress, appears at stated age Derm: warm, dry Head: atraumatic, normocephalic, symmetric Eyes: EOMI, no lid lag, anicteric sclera, left-sided ptosis Mouth: no lip lesion, mucus membranes moist Cardiovascular: S1S2 reg, no murmur Lungs: CTA bilateral, no rhonchi, no rales , no accessory muscle use Abdominal: soft, nontender to palpation, no guarding, no appreciable organomegaly Ext: no gross muscle atrophy, no edema, no contractures Neuro: CN II-XI grossly intact, no focal neuro deficits Psych: Alert, oriented, appropriate affect Assessment and Plan: Left-sided ptosis Diplopia - CT brain negative -MRI, MRA pending -Neurology consulted -Supportive care Hypokalemia -Resolved Chronic medical conditions: Hypertension - continue lisinopril and amlodipine Diabetes - sliding scale, basal insulin GERD - PPI DVT ppx: Heparin subcu Code status: Full code Anticipated discharge place: Home Anticipated discharge time:. Likely tomorrow Objective - Vital Signs Vital signs: Vital Signs Temp 98.3 F 05/08/22 15:00 Pulse 63 05/08/22 15:00 Resp 18 05/08/22 15:00 BP 151/74 05/08/22 15:00 Pulse Ox 99 05/08/22 15:00 FiO2 Intake & Output 05/07/22 05/08/22 05/08/22 18:59 06:59 18:59 Intake Total 358 Balance 358 Weight 84.822 kg 84.822 kg Intake: Oral 358 Other: # Voids 1 - Labs CBC & Chem 7: 05/08/22 06:16 05/08/22 06:16 Labs: Abnormal Lab Results - Last 24 Hours (Table) 05/07/22 05/07/22 05/08/22 Range/Units 20:26 21:21 03:33 WBC (3.8-10.6) k/uL Potassium 3.3 L (3.5-5.1) mmol/L Chloride 110 H (98-107) mmol/L Carbon Dioxide 21 L (22-30) mmol/L Creatinine (0.66-1.25) mg/dL Glucose (74-99) mg/dL POC Glucose (mg/dL) 119 H 193 H (70-110) mg/dL Hemoglobin A1c (0.0-6.0) % Calcium 7.6 L (8.4-10.2) mg/dL Vitamin B12 (200.0-944.0) pg/mL 05/08/22 05/08/22 05/08/22 Range/Units 06:16 06:16 06:16 WBC 3.3 L (3.8-10.6) k/uL Potassium (3.5-5.1) mmol/L Chloride 109 H (98-107) mmol/L Carbon Dioxide (22-30) mmol/L Creatinine 1.29 H (0.66-1.25) mg/dL Glucose 156 H (74-99) mg/dL POC Glucose (mg/dL) (70-110) mg/dL Hemoglobin A1c 7.5 H (0.0-6.0) % Calcium (8.4-10.2) mg/dL Vitamin B12 (200.0-944.0) pg/mL 05/08/22 05/08/22 05/08/22 Range/Units 06:16 07:23 12:30 WBC (3.8-10.6) k/uL Potassium (3.5-5.1) mmol/L Chloride (98-107) mmol/L Carbon Dioxide (22-30) mmol/L Creatinine (0.66-1.25) mg/dL Glucose (74-99) mg/dL POC Glucose (mg/dL) 131 H 145 H (70-110) mg/dL Hemoglobin A1c (0.0-6.0) % Calcium (8.4-10.2) mg/dL Vitamin B12 1182.0 H (200.0-944.0) pg/mL
[2022-05-08 17:07] LABS: Glucose,Whole Blood 170 mg/dL (70-110)
[2022-05-08] MEDS ORDERED: FLUTICASONE 50MCG/SPRAY NASAL 16GM EA NOSTRIL PRN (18:41)
[2022-05-08] MEDS ORDERED: LATANOPROST 0.005% OPHTH DROPS 2.5 ML BTL BOTH EYES SCH (21:00)
[2022-05-08] MEDS ORDERED: NON FORMULARY DRUG (Ubidecarenone [Co Q-10] 100 MG Capsule) PO SCH (21:00)
[2022-05-08] MEDS ORDERED: amLODIPine 10 MG TAB PO SCH (21:00)
[2022-05-08] MEDS ORDERED: ASPIRIN 81 MG PO SCH (21:00)
[2022-05-08] MEDS ORDERED: lisinopriL 20 MG TAB PO SCH (21:00)
[2022-05-08 21:10] LABS: Glucose,Whole Blood 95 mg/dL (70-110)
[2022-05-08] MEDS: HEPARIN SODIUM,PORCINE/PF 5,000 UNIT/0.5 ML SYRINGE SQ SCH (22:59)
[2022-05-09] MEDS: ACETAMINOPHEN TAB 325 MG TAB PO PRN ×2 (01:38→08:24)
[2022-05-09 07:15] LABS: Glucose,Whole Blood 226 mg/dL (70-110)
[2022-05-09] MEDS: INSULIN ASPART (NovoLOG) 100 UNIT/ML VIAL SQ SCH ×2 (08:04→08:25)
[2022-05-09 08:21] VITALS: BP 163/73; PULSE 86; RESP 17; TEMP 98.4
[2022-05-09] MEDS: hydrALAZINE HCL 50 MG TAB PO SCH (08:24)
[2022-05-09] MEDS: PANTOPRAZOLE 40 MG TABLET PO SCH (08:24)
[2022-05-09] MEDS: HEPARIN SODIUM,PORCINE/PF 5,000 UNIT/0.5 ML SYRINGE SQ SCH (08:25)
[2022-05-09] MEDS: DAPAGLIFLOZIN PROPANEDIOL 10 MG TABLET PO SCH (08:25)
--- NOTE | 2022-05-09 10:12 | P.PN ---
Subjective Progress Note Date: 05/09/22 The patient is seen at bedside and he feels about the same. He denies any new neurological issues. Objective - Vital Signs Vital signs: Vital Signs Temp 98.4 F 05/09/22 07:00 Pulse 86 05/09/22 07:00 Resp 17 05/09/22 07:00 BP 163/73 05/09/22 07:00 Pulse Ox 97 05/09/22 07:00 FiO2 Intake & Output 05/08/22 05/09/22 05/09/22 18:59 06:59 18:59 Intake Total 598 444 Balance 598 444 Weight 84.822 kg Intake: Oral 598 444 Other: # Voids 1 1 - Exam GENERAL: The patient is lying in bed and is not in acute distress. NEUROLOGICAL: Higher mental function: The patient is awake, alert, oriented to self, place and time. Patient is following commands. No aphasia and no neglect. Cranial nerves: Primary gaze is midline bilaterally. The pupils are round, equal and reactive to light. Appears to have intact accomodation over the right eye but not left. Visual rodriguez are full to confrontation throughout. Extraocular movement is palsy looking to left medial and up and out. No nysagumus. Has ptosis over the left eye that is moderate in severity. Facial sensation is normal to touch throughout. The facial strength is mild decrease left upper and lower facial weakness (old Dennison's Palsy). Hearing is normal bilaterally to hand rub. Tongue is midline and moved [id number] without any difficulty. No dysarthria is noted. Shoulder shrug is normal bilaterally. Motor: The strength is 5 over 5 throughout. Normal tone and bulk. Cerebellum: Normal finger to nose heel to barriga bilaterally. Sensation: Sensation is normal to touch throughout. Reflexes (right/left): 2+ throughout. Plantars are mute bilaterally. Some other workup during this hospital visit consisted of: CT of the head is reported as negative on has had computed tomography scan. No change. I personally reviewed the CT of the head and there is no acute or subacute ischemia. There is no intrathecal hemorrhage. There is no mass effect that was able to appreciate. Initial calcium 7.6 is the repeated calcium is 8.9. Vitamin B12: 1182 TSH: 0.774 HbA1c: 7.5 MRI Brain is reported as no acute intracranial process. Mild degenerative change and mild nonspecific white matter changes most remotely ischemic. I personally reviewed MRI Brain and there is no acute or subacute ischemic stroke. MRA head is reported as No evidence of vascular malformation or sizable aneurysm. Diminutive vertebrobasilar system can occasionally b associated with vertebrobasilar insufficiency correlate clinically. 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 No acute/subacute ischemic stroke or aneursym seen. Rule out aneurysm or stroke. Long-standing history of diabetes for the past 30 years Long-standing history of hypertension for about 30 years History of Dennison's palsy about 2 years ago on the left facial and it's mild sev erity History of renal cancer s/p resection and has only one functional since 2002 Plan: Patient needs to follow-up with his mill tender washing as an outpatient for further management as outpatient. He has eye patch for left eye and was told to wear it at night but during the day to alternate to attempt to strengthen the movement of left eye palsy. Continued on his home dose of aspirin 81 mg daily at bedtime. We'll defer the rest of the medical management to the primary team. Upon discharge the patient to continue to follow-up with his mill tender washing within 1-2 weeks. Consider also following-up with neurologist as outpatient. Plan is discussed with patient and primary team. No additional work-up is needed. Patient is clear for discharge from neurological perspective. Sina Currie M.D. Neuro-Hospitalist Time with Patient: Less than 30
[2022-05-09 10:24] LABS: African American GFR (CKD) 61.5 (60.0-200.0); Anion Gap 13.3 mmol/L (10.00-18.00); BUN/Creat Ratio 13.14 Ratio (12.00-20.00); Blood Urea Nitrogen 18.4 mg/dL (9.0-27.0); Calcium 8.9 mg/dL (8.7-10.3); Carbon Dioxide 20.7 mmol/L (20.0-27.5); Non-African American GFR(CKD) 53.1 (60.0-200.0); Potassium 4.2 mmol/L (3.5-5.5)
--- NOTE | 2022-05-09 10:25 | P.DS ---
Providers Date of admission: 05/07/22 21:58 Expected date of discharge: 05/09/22 Attending physician: Karley Holder MD Consults: 05/07/22 21:01 Consult Physician Routine Consulting Provider: Sina Currie Consult Reason/Comments: isolated left medial rectus palsy Do you want consulting provider notified?: Already Contacted Primary care physician: Jesus Manuel Bañuelos Hospital Course: Discharge Diagnosis: Left-sided ptosis Diplopia Partial left third cranial nerve palsy History of Dennison's palsy History of renal cancer status post resection Hypokalemia Hypertension Insulin-dependent diabetes GERD Hospital Course: 62-year-old male with History of Dennison's palsy, diabetes, renal cancer status post resection presented with diplopia and left-sided eye weakness. CT head did not show any acute process. Patient was seen by neurology. Likely has partial left third cranial nerve palsy related to diabetes. MRI/MRA did not show any acute intracranial process. Mild degenerative changes and mild nonspecific white matter changes mostly remotely ischemic were noted. No evidence of vascular malformation or sizable aneurysm was noted. Diminutive vertebrobasilar system was seen which could represent vertebrobasilar insufficiency. However patient does not have any syncopal symptoms. Patient was discharged with an eye patch and recommended to rotate between the 2 eyes to retrain the muscles on the left side. He will see his tool and fixture repairer after discharge. He will also make an appointment with neurology in the future to further assess the possibility of vertebrobasilar insufficiency. Patient seen and examined at bedside. Vital signs reviewed and stable. General: nontoxic, no distress, appears at stated age Derm: warm, dry Head: atraumatic, normocephalic, symmetric Eyes: EOMI, no lid lag, anicteric sclera, left-sided ptosis Mouth: no lip lesion, mucus membranes moist Cardiovascular: S1S2 reg, no murmur Lungs: CTA bilateral, no rhonchi, no rales , no accessory muscle use Abdominal: soft, nontender to palpation, no guarding, no appreciable organomegaly Ext: no gross muscle atrophy, no edema, no contractures Neuro: Possible third cranial nerve palsy Psych: Alert, oriented, appropriate affect A total of 41 minutes of time were spent preparing this complex discharge summary. Patient was discharged on 05/09/22 08:19. Patient Condition at Discharge: Stable Plan - Discharge Summary New Discharge Prescriptions: New Fluticasone Nasal [place] [Flonase Nasal [place]] 2 spray EA NOSTRIL DAILY PRN #7 ml PRN Reason: Allergy Symptoms Continue Insulin Glargine,Hum.rec.anlog [Toujeo Solostar] 38 units SQ HS INSULIN ASPART (NovoLOG) [NovoLOG (formulary)] 15 unit SQ AC-TID INSULIN ASPART (NovoLOG) [NovoLOG (formulary)] See Protocol SQ AC-TID PRN PRN Reason: JOSE BLOOD SUGAR Glucos Sul 2Kcl/MSM/Chond/C/Mn [Glucosamine Chondroitin Cap] 1 cap PO HS Ubidecarenone [Co Q-10] 200 mg PO HS Aspirin EC [Ecotrin Low Dose] 81 mg PO HS Latanoprost/Pf [Latanoprost 0.005% Eye Drop] 1 drop BOTH EYES HS Empagliflozin [Jardiance] 10 mg PO DAILY Famotidine 40 mg PO HS metFORMIN HCL ER [Glucophage XR] 500 mg PO HS Ibuprofen [Motrin] 800 mg PO Q8H PRN PRN Reason: Pain hydrALAZINE HCL [Apresoline] 50 mg PO TID Multivitamins, Thera [Multivitamin (formulary)] 1 tab PO HS lisinopriL [Zestril] 20 mg PO HS amLODIPine [Norvasc] 10 mg PO HS Cinnamon Bark [Cinnamon] 1,000 mg PO HS Cranberry Fruit Extract [Cranberry] 500 mg PO HS Zinc Gluconate [Zinc] 100 mg PO HS Discharge Medication List Aspirin EC [Ecotrin Low Dose] 81 mg PO HS 12/21/19 [History] Empagliflozin [Jardiance] 10 mg PO DAILY 12/21/19 [History] Famotidine 40 mg PO HS 12/21/19 [History] Glucos Sul 2Kcl/MSM/Chond/C/Mn [Glucosamine Chondroitin Cap] 1 cap PO HS 12/21/19 [History] INSULIN ASPART (NovoLOG) [NovoLOG (formulary)] 15 unit SQ AC-TID 12/21/19 [History] INSULIN ASPART (NovoLOG) [NovoLOG (formulary)] See Protocol SQ AC-TID PRN 12/21/19 [History] Insulin Glargine,Hum.rec.anlog [Toujeo Solostar] 38 units SQ HS 12/21/19 [History] Latanoprost/Pf [Latanoprost 0.005% Eye Drop] 1 drop BOTH EYES HS 12/21/19 [History] Ubidecarenone [Co Q-10] 200 mg PO HS 12/21/19 [History] metFORMIN HCL ER [Glucophage XR] 500 mg PO HS 12/21/19 [History] Cinnamon Bark [Cinnamon] 1,000 mg PO HS 05/07/22 [History] Cranberry Fruit Extract [Cranberry] 500 mg PO HS 05/07/22 [History] Ibuprofen [Motrin] 800 mg PO Q8H PRN 05/07/22 [History] Multivitamins, Thera [Multivitamin (formulary)] 1 tab PO HS 05/07/22 [History] Zinc Gluconate [Zinc] 100 mg PO HS 05/07/22 [History] amLODIPine [Norvasc] 10 mg PO HS 05/07/22 [History] hydrALAZINE HCL [Apresoline] 50 mg PO TID 05/07/22 [History] lisinopriL [Zestril] 20 mg PO HS 05/07/22 [History] Fluticasone Nasal [place] [Flonase Nasal [place]] 2 spray EA NOSTRIL DAILY PRN #7 ml 05/09/22 [Rx] Follow up Appointment(s)/Referral(s): Jesus Manuel Bañuelos MD [Primary Care Provider] - 1-2 days Patient Instructions/Handouts: Ptosis (GEN) Activity/Diet/Wound Care/Special Instructions: Please follow up with your tool and fixture repairer in 1-2 weeks. Continue to rotate the eye patch between the 2 eyes to strengthen the eye muscles on the left. Discharge Disposition: HOME SELF-CARE
== END 2022-05-09 10:27 | disposition home or self-care (01) ==
LOC: EC 15:34 → 6NMEDSUR 21:58
PROVIDERS: ADMIT Internal Medicine; ATTEND Internal Medicine
DX: H49.02 Third [oculomotor] nerve palsy, left eye (principal); E87.6 Hypokalemia; I10 Essential (primary) hypertension; K21.9 Gastro-esophageal reflux disease without esophagitis; E10.9 Type 1 diabetes mellitus without complications; Z79.84 Long term (current) use of oral hypoglycemic drugs; Z79.4 Long term (current) use of insulin; Z79.899 Other long term (current) drug therapy; Z88.1 Allergy status to other antibiotic agents; Z88.0 Allergy status to penicillin; Z90.5 Acquired absence of kidney; Z90.79 Acquired absence of other genital organ(s); Z98.1 Arthrodesis status; Z83.3 Family history of diabetes mellitus; Z82.49 Family history of ischemic heart disease and other diseases of the circulatory system; Z85.528 Personal history of other malignant neoplasm of kidney; Z79.82 Long term (current) use of aspirin
CPT/HCPCS: 96372 ×2; 96361 ×2; 96374; 96375; 99285; 36415; 80048 ×3; 84443; 82607; 83735; 85025 ×2; 83036; 70450; 70544; 70551; G0378 ×3; J1200; J0780; J1885; J1644 ×2

== ENCOUNTER → 2022-05-24 | Outpatient (CLI) | payer BC ==
[2022-05-24 23:15] LABS: HCT 46.1 % (39.6-50.0); HGB 15.4 g/dL (13.0-17.0); MCH 29.4 pg (27.0-32.0); MCHC 33.4 g/dL (32.0-37.0); Mean Platelet Volume 11.1 fL (9.5-12.2); NRBC Per 100 WBC 0 /100 WBCS (0.0-0.0); Platelet Count 189 X 10*3/uL (140-440); RBC 5.24 X 10*6/uL (4.40-5.60); RDW 11.7 % (11.5-14.5); WBC 4.17 X 10*3/uL (4.50-10.00)
[2022-05-24 23:30] LABS: C Reactive Protein <0.30 mg/dL (0.00-0.80)
[2022-05-24 23:48] LABS: Protein, Total 6.6 g/dL (6.2-8.2)
[2022-05-25 00:55] LABS: Erythrocyte Sedimentation Rate 6 mm/Hr (0-20)
[2022-05-25 19:32] LABS: Albumin 4.37 g/dL (3.80-4.90); Gamma Globulin 0.73 g/dL (0.70-1.50)
== END | disposition home or self-care (01) ==
LOC: LABWHC1 15:01
PROVIDERS: ATTEND Ophthalmology
DX: H49.02 Third [oculomotor] nerve palsy, left eye (principal); H57.12 Ocular pain, left eye; H57.02 Anisocoria
CPT/HCPCS: 36415; 82164; 84165; 84439; 84443; 84481; 85027; 85652; 86140

== ENCOUNTER → 2022-12-20 | Outpatient (CLI) | payer BC ==
--- NOTE | 2022-12-21 06:37 | US ---
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 Bilateral parotid glands appear symmetric without concerning solid or cystic mass or focal fluid chantelle ection. They may be symmetrically prominent in size. Findings correlate with recent CT. IMPRESSION: As above.
== END | disposition home or self-care (01) ==
LOC: RADUSWWP 16:19
PROVIDERS: ATTEND Family Medicine
DX: K11.1 Hypertrophy of salivary gland (principal)
CPT/HCPCS: 76536

== ENCOUNTER → 2023-03-06 | Outpatient (CLI) | payer OTHER | END | disposition home or self-care (01) | LOC: LABWHC1 14:48 | PROVIDERS: ATTEND Urology | DX: C61 Malignant neoplasm of prostate (principal) | CPT/HCPCS: 36415; 84153 ==

== ENCOUNTER → 2023-12-02 | Outpatient (CLI) | payer BC ==
[2023-12-02 17:46] LABS: ALT 31 U/L (10-49); AST 42 U/L (14-35); Albumin 4.5 g/dL (3.8-4.9); Albumin/Globulin Ratio 2.25 Ratio (1.60-3.17); Alkaline Phosphatase 70 U/L (41-126); BUN/Creat Ratio 11.57 Ratio (12.00-20.00); Blood Urea Nitrogen 16.2 mg/dL (9.0-27.0); C Reactive Protein, High Sens 0.393 mg/L (0.000-3.000); Calcium 9.6 mg/dL (8.7-10.3); Carbon Dioxide 24.9 mmol/L (21.6-31.8); Chloride 108 mmol/L (96-109); Chol/HDL Ratio 2.14 Ratio; Glucose 103 mg/dL (70-110); LDL Cholesterol,Calculated 75.1 mg/dL (0.0-131.0); Potassium 4.2 mmol/L (3.5-5.5); Prostate Specific Antigen 0.16 ng/mL (0.000-4.500); Sodium 143 mmol/L (135-145); Total Bilirubin 0.8 mg/dL (0.3-1.2); Total Protein 6.5 g/dL (6.2-8.2); VLDL Calculation 10.84 mg/dL (5.00-40.00)
[2023-12-02 23:23] LABS: HCT 46.5 % (39.6-50.0); HGB 15.5 g/dL (13.0-17.0); MCHC 33.3 g/dL (32.0-37.0); MCV 89.9 FL (80.0-97.0); Mean Platelet Volume 11.1 FL (9.5-12.2); NRBC Per 100 WBC 0 X 10*3/uL (0.00-0.01); Platelet Count 167 X 10*3/uL (140-440); RBC 5.17 X 10*6/uL (4.40-5.60); RDW 12.3 % (11.5-14.5); WBC 3.11 X 10*3/uL (4.50-10.00)
== END | disposition home or self-care (01) ==
LOC: LABWHC1 13:41
PROVIDERS: ATTEND Family Medicine
DX: Z12.5 Encounter for screening for malignant neoplasm of prostate (principal); Z13.220 Encounter for screening for lipoid disorders; N18.31 Chronic kidney disease, stage 3a
CPT/HCPCS: 36415; 80053; 80061; 82306; 83970; 84153; 85027; 86141

== ENCOUNTER → 2024-03-02 | Outpatient (CLI) | payer BC ==
--- NOTE | 2024-03-24 11:56 | US ---
EXAMINATION TYPE: US scrotum with doppler. Grayscale and color Doppler Duplex imaging performed of flor leal scrotum. DATE OF EXAM: 03/24/2024 COMPARISON: NONE CLINICAL INDICATION: Male, 64 years old with history of N50.89; Palp on the left. No pain. Old know n right hydrocele EXAM MEASUREMENTS: TESTICLES: Right Testicle: 4.5 x 3.4 x 2.4 cm Left Testicle: 4.7 x 3.6 x 2.4 cm EPIDIDYMIS HEAD: Right Epididymis: 2.2 cm Left Epididymis: 1.1 cm Doppler performed to assess for testicular vascularity; good bilateral color flow and waveforms are s een. There is no evidence of testicular torsion. Presence of hydroceles: Mild right and left Presence of varicoceles: Left Right epididymal cyst seen. IMPRESSION: 1. No evidence for intratesticular mass. There is a epididymal cyst on the right. 2. No evidence for acute process. 3. Appropriate arterial and venous spectral waveforms to the testes. 4. Trace left varicocele. Trace bilateral hydroceles
== END | disposition home or self-care (01) ==
LOC: RADUSWWP 09:09
PROVIDERS: ATTEND Family Medicine
DX: N50.89 Other specified disorders of the male genital organs (principal); N50.3 Cyst of epididymis; I86.1 Scrotal varices; N43.3 Hydrocele, unspecified
CPT/HCPCS: 76870; 93975